=== PATIENT | male | born 1980 | race African-American/Black ===

== ENCOUNTER 2022-05-17 14:07 | Outpatient (CLI) | payer OTHER, SELFPAY ==
[2022-05-17 20:12] LABS: Basophils Absolute Auto 0.1 K/mm3 (0.0-0.1); Basophils Percent Auto 1.3 % (0.2-1.2); Eosinophils Absolute Auto 0.5 K/mm3 (0-0.3); Eosinophils Percent Auto 7.6 % (0-4.4); Hemoglobin 16.4 g/dL (14.0-18.0); Immature Granulocyte Absolute 0.09 K/mm3 (0.00-0.031); Immature Granulocyte Percent A 1.3 % (0-0.5); Mean Corpuscular HGB Conc 30.9 g/dl (32-36); Mean Corpuscular Hemoglobin 23.1 pg (26-34); Mean Corpuscular Volume 74.5 fl (80-100); Mean Platelet Volume 11.2 fl (7.4-10.4); Monocytes Absolute Auto 0.6 K/mm3 (0.1-0.6); Monocytes Percent Auto 8.9 % (2.6-8.5); Neutrophils Absolute Auto 3.4 K/mm3 (1.3-6.7); Neutrophils Percent Auto 47.9 % (45.5-73.1); Platelet Count Result 257 k/mm3 (150-375); Red Blood Count 7.11 M/mm3 (4.6-6.20); Red Cell Distribution Width 19.6 % (11.5-14.5)
[2022-05-17 20:23] LABS: Alanine Aminotransferase 67 U/L (6-50); Albumin Level 4.6 g/dL (3.5-5.1); Alkaline Phosphatase 84 U/L (38-126); Anion Gap 7 mmol/L (8-16); Aspartate Amino Transferase 45 U/L (17-59); Bilirubin,Total 0.3 mg/dL (0.2-1.3); Blood Urea Nitrogen 9 mg/dL (9-20); Calcium 8.7 mg/dL (8.4-10.2); Carbon Dioxide 25 mmol/L (22-30); Chloride 106 mmol/L (98-107); Cholesterol 164 mg/dL (0-200); Estimated Glomerular Filt Rate > 60; Glucose 105 mg/dL (65-110); HDL Direct 33 mg/dL; Sodium 138 mmol/L (137-145); Triglycerides 230 mg/dL (<150)
[2022-05-17 20:34] LABS: LDL Cholesterol Direct 82 mg/dL
== END 2022-05-17 14:08 | disposition home or self-care (01) ==
PROVIDERS: PCP Family Medicine; Visit Provider Family Medicine
DX: Z00.00 Encounter for general adult medical examination without abnormal findings (principal)
CPT/HCPCS: 36415; 80053; 80061; 85025

== ENCOUNTER 2022-06-06 11:42 | Outpatient (CLI) | payer OTHER, SELFPAY ==
[2022-06-06 19:43] LABS: Basophils Absolute Auto 0.1 K/mm3 (0.0-0.1); Eosinophils Absolute Auto 0.4 K/mm3 (0-0.3); Eosinophils Percent Auto 6.1 % (0-4.4); Hematocrit 55.4 % (42.0-52.0); Hemoglobin 16.3 g/dL (14.0-18.0); Immature Granulocyte Absolute 0.06 K/mm3 (0.00-0.031); Immature Granulocyte Percent A 0.8 % (0-0.5); Lymphocytes Absolute Auto 3.06 K/mm3 (0.9-3.2); Lymphocytes Percent Auto 42.1 % (18.3-44.2); Mean Corpuscular HGB Conc 29.4 g/dl (32-36); Mean Corpuscular Hemoglobin 22.2 pg (26-34); Mean Corpuscular Volume 75.6 fl (80-100); Mean Platelet Volume 11.3 fl (7.4-10.4); Monocytes Absolute Auto 0.6 K/mm3 (0.1-0.6); Monocytes Percent Auto 8.1 % (2.6-8.5); Neutrophils Absolute Auto 3.1 K/mm3 (1.3-6.7); Neutrophils Percent Auto 41.9 % (45.5-73.1); Platelet Count Result 278 k/mm3 (150-375); Red Blood Count 7.33 M/mm3 (4.6-6.20); Red Cell Distribution Width 18.9 % (11.5-14.5); White Blood Count 7.3 K/mm3 (4.5-10.0)
[2022-06-06 19:51] LABS: Alanine Aminotransferase 109 U/L (6-50); Albumin Level 4.4 g/dL (3.5-5.1); Alkaline Phosphatase 83 U/L (38-126); Aspartate Amino Transferase 83 U/L (17-59); Bilirubin,Total 0.5 mg/dL (0.2-1.3)
[2022-06-06 20:22] LABS: Microcytosis 1+ (NORMAL); Platelet Estimate Adequate (Adequate)
[2022-06-06 21:48] LABS: Hepatitis B Surface Antigen Negative (Negative)
[2022-06-06 21:53] LABS: HAV RESULT Negative (Negative); Hepatitis B Core IgM Result Negative (Negative)
[2022-06-06 22:05] LABS: Hepatitis C Virus Antibody Negative (Negative)
== END 2022-06-06 11:43 | disposition home or self-care (01) ==
PROVIDERS: PCP Family Medicine; Visit Provider Family Medicine
DX: R74.8 Abnormal levels of other serum enzymes (principal); D75.1 Secondary polycythemia
CPT/HCPCS: 36415; 80074; 80076; 85025

== ENCOUNTER 2022-12-06 11:55 | Outpatient (CLI) | payer OTHER, SELFPAY ==
[2022-12-06 19:29] LABS: Hematocrit 55.9 % (42.0-52.0); Hemoglobin 16.9 g/dL (14.0-18.0); Mean Corpuscular HGB Conc 30.2 g/dl (32-36); Mean Corpuscular Hemoglobin 22.8 pg (26-34); Mean Corpuscular Volume 75.5 fl (80-100); Mean Platelet Volume 11.1 fl (7.4-10.4); Platelet Count Result 289 k/mm3 (150-375); Red Cell Distribution Width 18.6 % (11.5-14.5); White Blood Count 8.1 K/mm3 (4.5-10.0)
[2022-12-06 20:26] LABS: Alanine Aminotransferase 72 U/L (6-50); Albumin Level 4.2 g/dL (3.5-5.1); Alkaline Phosphatase 83 U/L (38-126); Anion Gap 7 mmol/L (8-16); Aspartate Amino Transferase 52 U/L (17-59); Bilirubin,Total 0.4 mg/dL (0.2-1.3); Blood Urea Nitrogen 10 mg/dL (9-20); Carbon Dioxide 25 mmol/L (22-30); Chloride 107 mmol/L (98-107); Estimated Glomerular Filt Rate > 60; Glucose 108 mg/dL (65-110); Sodium 139 mmol/L (137-145)
== END 2022-12-06 11:56 | disposition home or self-care (01) ==
LOC: ANHBWCLAB 11:56
PROVIDERS: PCP Family Medicine; Visit Provider Family Medicine
DX: I50.9 Heart failure, unspecified (principal); R74.8 Abnormal levels of other serum enzymes; D75.1 Secondary polycythemia
CPT/HCPCS: 36415; 80053; 85027

== ENCOUNTER 2023-09-05 11:17 | Outpatient (CLI) | payer OTHER, SELFPAY ==
[2023-09-05 19:45] LABS: Alanine Aminotransferase 79 U/L (6-50); Albumin Level 4.4 g/dL (3.5-5.1); Alkaline Phosphatase 79 U/L (38-126); Anion Gap 9 mmol/L (8-16); Aspartate Amino Transferase 93 U/L (17-59); Bilirubin,Total 0.6 mg/dL (0.2-1.3); Blood Urea Nitrogen 10 mg/dL (9-20); Calcium 9.5 mg/dL (8.4-10.2); Carbon Dioxide 23 mmol/L (22-30); Chloride 106 mmol/L (98-107); Cholesterol 155 mg/dL (0-200); Estimated Glomerular Filt Rate > 60; Glucose 165 mg/dL (65-110); HDL Direct 33 mg/dL; Potassium 3.4 mmol/L (3.4-5.0); Sodium 138 mmol/L (137-145); Triglycerides 317 mg/dL (<150)
[2023-09-05 19:56] LABS: LDL Cholesterol Direct 89 mg/dL
== END 2023-09-05 11:18 | disposition home or self-care (01) ==
LOC: ANHBWCLAB 11:19
PROVIDERS: PCP Nurse Practitioner Adult Health; Visit Provider Nurse Practitioner Adult Health
DX: I10 Essential (primary) hypertension (principal)
CPT/HCPCS: 36415; 80053; 80061

== ENCOUNTER 2024-03-05 10:42 | Outpatient (CLI) | payer OTHER, SELFPAY ==
[2024-03-05 19:22] LABS: Basophils Absolute Auto 0.1 K/mm3 (0.0-0.1); Basophils Percent Auto 1.2 % (0.2-1.2); Eosinophils Absolute Auto 0.5 K/mm3 (0-0.3); Eosinophils Percent Auto 7.4 % (0-4.4); Immature Granulocyte Absolute 0.06 K/mm3 (0.00-0.031); Immature Granulocyte Percent A 0.9 % (0-0.5); Lymphocytes Absolute Auto 2.15 K/mm3 (0.9-3.2); Lymphocytes Percent Auto 33.1 % (18.3-44.2); Mean Corpuscular HGB Conc 29.4 g/dl (32-36); Mean Corpuscular Hemoglobin 22.7 pg (26-34); Mean Corpuscular Volume 77.3 fl (80-100); Mean Platelet Volume 10.8 fl (7.4-10.4); Monocytes Absolute Auto 0.5 K/mm3 (0.1-0.6); Monocytes Percent Auto 7.5 % (2.6-8.5); Neutrophils Absolute Auto 3.2 K/mm3 (1.3-6.7); Neutrophils Percent Auto 49.9 % (45.5-73.1); Platelet Count Result 281 k/mm3 (150-375); Red Cell Distribution Width 16.1 % (11.5-14.5); White Blood Count 6.5 K/mm3 (4.5-10.0)
[2024-03-05 20:02] LABS: Anisocytosis 1+; Large Platelets Present; Platelet Estimate Adequate (Adequate); Schistocytes None Seen
[2024-03-05 22:05] LABS: Thyroid Stimulating Hormone Reflex 0.701 uIU/mL (0.465-4.68)
[2024-03-05 22:46] LABS: Alanine Aminotransferase 92 U/L (6-50); Albumin Level 4.7 g/dL (3.5-5.1); Alkaline Phosphatase 71 U/L (38-126); Anion Gap 7 mmol/L (4-12); Aspartate Amino Transferase 103 U/L (17-59); Bilirubin,Total 0.5 mg/dL (0.2-1.3); Blood Urea Nitrogen 15 mg/dL (9-20); Calcium 10.1 mg/dL (8.4-10.2); Carbon Dioxide 25 mmol/L (22-30); Chloride 107 mmol/L (98-107); Cholesterol 146 mg/dL (0-200); Glucose 127 mg/dL (65-110); HDL Direct 33 mg/dL; Magnesium 2.2 mg/dL (1.6-2.3); Potassium 4.1 mmol/L (3.4-5.0); Sodium 139 mmol/L (137-145); Triglycerides 163 mg/dL (<150)
[2024-03-05 22:52] LABS: LDL Cholesterol Direct 85 mg/dL
[2024-03-05 23:18] LABS: Estimated Glomerular Filt Rate 57
== END 2024-03-05 10:43 | disposition home or self-care (01) ==
PROVIDERS: PCP Nurse Practitioner Adult Health; Visit Provider Nurse Practitioner Adult Health
DX: I10 Essential (primary) hypertension (principal)
CPT/HCPCS: 36415; 80053; 80061; 83735; 84443; 85025

== ENCOUNTER 2024-06-02 15:37 | Outpatient (CLI) | payer OTHER, SELFPAY ==
[2024-06-02 19:05] LABS: Albumin Level 4.5 g/dL (3.5-5.1); Anion Gap 10 mmol/L (4-12); Blood Urea Nitrogen 6 mg/dL (9-20); Carbon Dioxide 25 mmol/L (22-30); Chloride 102 mmol/L (98-107); Estimated Glomerular Filt Rate > 60; Glucose 153 mg/dL (65-110); Phosphorus 2.7 mg/dL (2.5-4.5); Potassium 3.7 mmol/L (3.4-5.0); Sodium 137 mmol/L (137-145)
[2024-06-02 19:12] LABS: Creatinine Urine 257.2 mg/dL; Total Protein Urine Random 13 mg/dL; Ur Ttl Prot Creatinine Ratio 0.05 mg/mg (0-0.20)
[2024-06-02 19:13] LABS: Complement C3 141 mg/dL (88-165)
[2024-06-03 14:54] LABS: Creatinine, Random Urine 237 mg/dL (20-320); Total Protein/Creatinine Ratio 131 mg/g creat (25-148)
[2024-06-03 17:02] LABS: Protein, Total 7.1 g/dL (6.1-8.1)
[2024-06-04 12:29] LABS: Albumin 4.5 g/dL (3.8-4.8); Alpha 1 Globulin 0.2 g/dL (0.2-0.3); Alpha 2 Globulin 0.6 g/dL (0.5-0.9); Beta 1 Globulin 0.4 g/dL (0.4-0.6)
[2024-06-04 16:49] LABS: Anti Glomerular Basement Memb <1.0 AI
[2024-06-05 09:09] LABS: Anti Nuclear Antibody Pattern Nuclear, Homogeneous
[2024-06-05 15:33] LABS: ANCA Screen NEGATIVE (NEGATIVE)
== END 2024-06-02 15:38 | disposition home or self-care (01) ==
LOC: ANHBWCLAB 15:39
PROVIDERS: PCP Family Medicine; Visit Provider Internal Medicine Nephrology
DX: I50.9 Heart failure, unspecified (principal); I12.9 Hypertensive chronic kidney disease with stage 1 through stage 4 chronic kidney disease, or unspecified chronic kidney disease; N18.31 Chronic kidney disease, stage 3a
CPT/HCPCS: 36415; 80069; 82570; 83520; 84155; 84156; 84165; 84166; 86036; 86038; 86039; 86160; 86225

== ENCOUNTER 2024-06-15 17:06 | Outpatient (CLI) | payer OTHER, SELFPAY ==
--- NOTE | ~2024-06-15 | US_ITS ---
EXAMINATION: US renal BI DATE: 06/15/2024 18:30 INDICATION: N18.31 - Chronic kidney disease, stage 3a TECHNIQUE: Multiple grayscale and Doppler ultrasound images of the kidneys were obtained. COMPARISON: None. FINDINGS: The right kidney measures 13.4 x 6.2 x 6.3 cm. The left kidney measures 13.2 x 6.7 x 5.4 cm. The kidn eys demonstrate normal parenchymal echogenicity. There is no hydronephrosis. The bladder is normal. I ncidental note of increased liver echogenicity. IMPRESSION: Unremarkable renal sonogram findings. Echogenic liver, most commonly due to steatosis but also can be seen with hepatitis and fibrosis Reviewed, dictated and finalized at location K. IMPRESSION: Unremarkable renal sonogram findings. Echogenic liver, most commonly due to steatosis but also can be seen with hepat itis and fibrosis
== END 2024-06-15 17:07 | disposition home or self-care (01) ==
LOC: ANHIMG 17:06
PROVIDERS: PCP Family Medicine; Visit Provider Internal Medicine Nephrology
DX: I12.9 Hypertensive chronic kidney disease with stage 1 through stage 4 chronic kidney disease, or unspecified chronic kidney disease (principal); N18.31 Chronic kidney disease, stage 3a; I50.9 Heart failure, unspecified
CPT/HCPCS: 76775

== ENCOUNTER 2024-12-18 12:40 | Outpatient (CLI) | payer OTHER, SELFPAY ==
--- OUTSIDE RECORDS SUMMARY | 2024-12-18 12:49 | XMS_ITS | Encounter Summary ---
Author Organization [facility] Health Address [address] [place] [address] Care Team Providers Care Legal Records Clerk Name Role Phone Milo Thayer MD Primary Care Provider [phone] Reason for Visit * Reason Onset Date Comments MEDICATION REFILL 01/28/2024 Encounter Details Date Type Department Care Team (Late Contact Info) Description 01/28/2024 Refill [facility] - Cardiology [address] [facility], [address] [id number] Savita Tam PA [address] [place] [address] MEDICATION REFILL Social History Tobacco Use Types Packs/Day Years Used Date Smoking Tobacco: Every Day Cigarettes Smokeless Tobacco: Never Sex and Gender Information Value Date Recorded Sex Assigned at Not on file Gender Identity Not on file Sexual Orientation Not on file documented as of this encounter Plan of Treatment Upcoming Encounters Date Type Department Care Team (Late st Contact Info) Description 12/30/2024 10:00 AM [employer] Office Visit [facility] - Cardiology [address] [facility], [id number] [place] [phone] Ashley Zavala APRN-CNP [address] [address] documented as of this encounter Visit Diagnoses Not on filedocumented in this encounter Care Teams Legal Records Clerk Relationship Specialty Start Date End Date Milo Thayer MD [address] [place] [phone] PCP - General 09/17/22 documented as of this encounter
--- OUTSIDE RECORDS SUMMARY | 2024-12-18 12:49 | XMS_ITS | Referral Summary ---
Author Organization [facility] Medical Office Building A Address [address] [place] [address] Care Team Providers Care Computer Tester Name Role Phone Milo Thayer MD Primary Care Provider [phone] Encounters Date Type Department Care Team Description 10/22/2024 4:43 AM SPA ASSISTANT MANAGER - 10/22/2024 8:42 AM [facility] Emergency [facility] Emergency Department [address] [place] [address] Amy Long MD Holland, Kristy Lynn, MD Hypertension, unspecified type (Primary Dx) Discharge Disposition: Discharge to home or self care 10/21/2024 11:06 AM SPA ASSISTANT MANAGER - 10/21/2024 5:34 PM [facility] Emergency [facility] Emergency Department [address] [place] [id number] Discharge Disposition: Left without being seen from Last 3 Months Allergies No known active allergies Medications albuterol HFA (PROVENTIL HFA,VENTOLIN HFA,PROAIR HFA) 90 mcg/actuation inhaler Inhale 2 puffs every 4 (four) hours as needed for wheezing 1 each 12/16/2021 Active isosorbide dinitrate (ISORDIL) 30 mg tablet Take 1 tablet (30 mg total) by mouth 3 (three) times a day Active hydrALAZINE (APRESOLINE) 100 mg tablet 1 tablet (100 mg total) 04/25/2023 Active metoprolol XL (TOPROL-XL) 200 mg extended release tablet Take 1 tablet (200 mg total) by mouth daily for 14 days 14 tablet 05/04/2023 Active sacubitriL-vals josiah (ENTRESTO) 49-51 mg tabletIndicatio ns:chronic heart failure Take 1 tablet by mouth 2 (two) times a day for 14 days 28 tablet 05/04/2023 Active spironolactone (ALDACTONE) 25 mg tablet Take 1 tablet (25 mg total) by mouth daily for 14 days 14 tablet 05/04/2023 Active Active Problems Problem Noted Date Diagnosed Date Syncope and collapse 12/15/2021 Chronic systolic (congestive) heart failure 02/2022 Uncontrolled hypertension 12/15/2021 Social History Tobacco Use Types Packs/Day Years Used Date Smoking Tobacco: Every Day Cigarettes 0.8 24 Smokeless Tobacco: Current Tobacco Cessation:Ready to Q uit: No; Counseling Given: No AUDIT-C Answer Date Recorded Q1: How often do you have a drink containing alc ohol? 2-3 times a week 12/15/2021 Q2: How many drinks containi ng alcohol do you have on a typical day when you are drinking? 10 or more 12/15/2021 Q3: How often do you have si x or more drinks on one occasion? Weekly 12/15/2021 Personal Safety Answer Date Recorded Have you ever been in or are you currently in a harmful physical or emotional relationship or is someone making you feel afraid or unsafe? Denies 10/22/2024 Sex and Gender Information Value Date Recorded Sex Assigned at Not on file Legal Sex Male 3:29 AM SPA ASSISTANT MANAGER Gender Identity Not on file Sexual Orientation Not on file Last Filed Vital Signs Vital Sign Reading Time Taken Comments Blood Pressure 127/94 10/22/2024 8:30 AM SPA ASSISTANT MANAGER Pulse 90 10/22/2024 8:30 AM SPA ASSISTANT MANAGER Temperature 36.5 C (97.7 F) 10/22/2024 4:04 AM SPA ASSISTANT MANAGER Respiratory Rate 18 10/22/2024 8:30 AM SPA ASSISTANT MANAGER Oxygen Saturation 96% 10/22/2024 8:30 AM SPA ASSISTANT MANAGER Inhaled Oxygen Concentration - - Weight 103.9 kg (229 lb) 10/22/2024 4:04 AM SPA ASSISTANT MANAGER Height 180.3 cm (5' 11 ) 10/22/2024 4:04 AM SPA ASSISTANT MANAGER Body Mass Index 31.94 10/22/2024 4:04 AM SPA ASSISTANT MANAGER Plan of Treatment Not on file Medical Devices Implanted Type Area Assistant [employer] Device Identifier Shelf Expiration Date Model / Serial / Lot Screw Screw Right: Ankle Procedures Procedure Name Priority Date/Time Associated Diagnosis Comments EGFR STAT 10/22/2024 5:36 AM SPA ASSISTANT MANAGER DIFFERENTIAL AUTO Routine 10/22/2024 5:3 6 AM SPA ASSISTANT MANAGER TROPONIN T HIGH-SENSITIVITY SERIES (BASELINE, 2HR, 4HR, 6HR) STAT 10/22/2024 5:36 AM SPA ASSISTANT MANAGER BASIC METABOLIC PANEL STAT 10/22/2024 5:36 AM SPA ASSISTANT MANAGER CBC WITH AUTO DIFFERENTIAL Routine 10/22/2024 5:36 AM SPA ASSISTANT MANAGER ECG 12-LEAD STAT 10/22/2024 4:09 AM SPA ASSISTANT MANAGER EGFR STAT 10/21/2024 11:38 AM SPA ASSISTANT MANAGER DIFFERENTIAL AUTO STAT 10/21/2024 11: 38 AM SPA ASSISTANT MANAGER CBC WITH AUTO DIFFERENTIAL STAT 10/21/2024 11:38 AM SPA ASSISTANT MANAGER COMPREHENSIVE METABOLIC PANEL STAT 10/21/2024 11:38 AM SPA ASSISTANT MANAGER from Last 3 Months Results * Troponin T high-sensitivity series (baseline, 2hr, 4hr, 6hr) (10/22/2024 5:36 AM SPA ASSISTANT MANAGER) Trop T hs 9 <=22 ng/L Comment: Interpretive Data For further hscTnT resources including the diagnostic algorithm and an aid in interpretation, copy and paste this link: https://nrl.testcatalog.org/show/hsTrop Current Interpretive Data last revised 2020. Blood 10/22/2024 5:36 AM SPA ASSISTANT MANAGER 10/22/2024 5:38 AM SPA ASSISTANT MANAGER us Amy Long MD LAB BLOOD ORDERABLES Final Resul t [facility] ([place]) 1 [facility] Department [place] [address] * eGFR (10/22/2024 5:36 AM SPA ASSISTANT MANAGER) Pathologist [facility] eGFR >90 >=60 mL/min/1. 73 m2 Comment: Interpretive Data Reference Interval Normal >/= 90 mL/min/1.73m2 Mildly decreased* 60 - 89 mL/min/1.73m2 Mildly to moderately decreased 45 - 59 mL/min/1.73m2 Moderately to severely decreased 30 - 44 mL/min/1.73m2 Severely decreased 15 - 29 mL/min/1.73m2 Kidney Failure < 15 mL/min/1.73m2 *Relative to young adult level Estimated glomerular filtration rate is determined by the 2020 CKD-EPI equation recommended by the National Kidney Foundation (A Unifying Approach to GFR Estimation: Recommendations of the NKF-ASK Task Force on Reassessing the Inclusion of Race in Diagnosing Kidney Disease, JASN 2020). The CKD-EPI equation should not be used for patients with unstable renal function and has not been validated in children and those over 70. Current interpretive data was last reviewed 2021. Blood 10/22/2024 5:36 AM SPA ASSISTANT MANAGER 10/22/2024 5:38 AM SPA ASSISTANT MANAGER us Amy Long MD LAB BLOOD ORDERABLES Final Resul t [facility] ([place]) 1 [facility] Department [place] [address] * (ABNORMAL) Differential, auto (10/22/2024 5:36 AM SPA ASSISTANT MANAGER) Neutrophil abs 4.0 1.5 - 6.5 K/cumm Imm gran abs 0.1 0.0 - 0.1 K/cumm [facility] ([place]) Lymphocyte abs 2.5 0.8 - 3.3 K/cumm [facility] ([place]) Monocyte abs 0.6 0.2 - 0.8 K/cumm [facility] ([place]) Eosinophil abs 0.6(H) 0.0 - 0.5 K/cumm [facility] ([place]) Basophil abs 0.1 0.0 - 0.1 K/cumm [facility] ([place]) Neutrophil pct 51.0 % [facility] ([place]) Comment: Interpretive Data Percent cell count reference ranges are not reported, since discordance with absolute values may lead to misinterpretation of CBC data. Current Interpretive Data was last revised on 2018. Imm gran pct 0.9 % [facility] ([place]) Comment: Interpretive Data Percent cell count reference ranges are not reported, since discordance with absolute values may lead to misinterpretation of CBC data. Current Interpretive Data was last revised on 2018. Lymphocyte pct 32.0 % [facility] ([place]) Comment: Interpretive Data Percent cell count reference ranges are not reported, since discordance with absolute values may lead to misinterpretation of CBC data. Current Interpretive Data was last revised on 2018. Monocyte pct 7.6 % [facility] ([place]) Comment: Interpretive Data Percent cell count reference ranges are not reported, since discordance with absolute values may lead to misinterpretation of CBC data. Current Interpretive Data was last revised on 2018. Eosinophil pct 7.5 % [facility] ([place]) Comment: Interpretive Data Percent cell count reference ranges are not reported, since discordance with absolute values may lead to misinterpretation of CBC data. Current Interpretive Data was last revised on 2018. Basophil pct 1.0 % [facility] ([place]) Comment: Interpretive Data Percent cell count reference ranges are not reported, since discordance with absolute values may lead to misinterpretation of CBC data. Current Interpretive Data was last revised on 2018. Blood 10/22/2024 5:36 AM SPA ASSISTANT MANAGER 10/22/2024 5:38 AM SPA ASSISTANT MANAGER us Amy Long MD LAB BLOOD ORDERABLES Final Resul t [facility] ([place]) 1 [facility] Department [place] [address] * (ABNORMAL) CBC with auto differential (10/22/2024 5:36 AM SPA ASSISTANT MANAGER) WBC 7.9 3.8 - 9.9 K/cumm Hgb 17.2 13.0 - 17.5 g/dL [facility] ([place]) Hct 54.7(H) 38.9 - 50.3 % [facility] ([place]) Plt 274 150 - 400 K/cumm [facility] ([place]) MPV 10.0 9.1 - 12.3 fL [facility] ([place]) RBC 7.70(H) 4.30 - 5.80 M/cumm [facility] ([place]) MCV 71.0(L) 81.3 - 96.4 fL [facility] ([place]) MCH 22.3(L) 27.1 - 33.3 pg [facility] ([place]) MCHC 31.4(L) 32.3 - 35.7 g/dL [facility] ([place]) RDW CV 18.8(H) 11.1 - 14.9 % [facility] ([place]) RDW SD 41.8 35.7 - 48.1 fL [facility] ([place]) NRBC abs 0.00 0.00 - 0.01 K/cumm [facility] ([place]) Blood 10/22/2024 5:36 AM SPA ASSISTANT MANAGER 10/22/2024 5:38 AM SPA ASSISTANT MANAGER us Amy Long MD LAB BLOOD ORDERABLES Final Resul t [facility] ([place]) 1 [facility] Department [place] [address] * Basic metabolic panel (10/22/2024 5:36 AM SPA ASSISTANT MANAGER) Sodium 137 135 - 145 mmol/L Potassium, pl 3.3 3.3 - 4.9 mmol/L [facility] ([place]) Chloride 102 97 - 110 mmol/L [facility] ([place]) CO2 25 22 - 32 mmol/L [facility] ([place]) Anion gap 11 2 - 15 mmol/L [facility] ([place]) BUN 9 6 - 25 mg/dL [facility] ([place]) Creatinine 0.85 0.80 - 1.30 mg/dL [facility] ([place]) Glucose 182 70 - 199 mg/dL [facility] ([place]) Comment: Interpretive Data Fasting glucose >/= 126 mg/dl is diagnostic for diabetes. Fasting is defined as no caloric intake for at least 8 hours. Fasting glucose between 100 mg/dl to 125 mg/dl is diagnostic of prediabetes. In a patient with classic symptoms of hyperglycemia or hyperglycemic crisis, a random glucose >/= 200 mg/dl is diagnostic for diabetes. In the absence of unequivocal hyperglycemia, results should be confirmed by repeat testing. The classification and Diagnosis of Diabetes Diabetes Care 2021; 46: S19-S40. Current interpretive data was last revised 2022. Calcium 9.5 8.5 - 10.3 mg/dL [facility] ([place]) Blood 10/22/2024 5:36 AM SPA ASSISTANT MANAGER 10/22/2024 5:38 AM SPA ASSISTANT MANAGER us Amy Long MD LAB BLOOD ORDERABLES Final Resul t Performing Organization Address [facility] Co de Phone Number [facility] ([place]) 1 [facility] [place] [address] * ECG 12 lead (10/22/2024 4:09 AM SPA ASSISTANT MANAGER) 10/22/2024 4:09 AM SPA ASSISTANT MANAGER Narrative [facility] - 10/22/2024 8:39 AM SPA ASSISTANT MANAGER Vent Rate: 106 bpm RR Interval: [address] Interval: 172 msec QRS Duration: 117 msec QT Interval: 356 msec QTC Interval: 418 msec P-R-T [place]: 55 - 17 - 36 degrees IMPRESSION: SINUS TACHYCARDIA POSSIBLE LEFT ATRIAL ENLARGEMENT [-0.1mV P WAVE IN V1/V2] LVH Somewhat peaked T-waves may be due to electrolyte abnormality Compared to prior EKG, heart rate is now slightly faster and axis has shifted rightward Electronically Signed By: Dr Jamel Moise us Amy Long MD ECG ORDERABLES Final Result Performing Organization Address [facility] Co de Phone Number [facility] * eGFR (10/21/2024 11:38 AM SPA ASSISTANT MANAGER) eGFR >90 >=60 mL/min/1. 73 m2 Comment: Interpretive Data Reference Interval Normal >/= 90 mL/min/1.73m2 Mildly decreased* 60 - 89 mL/min/1.73m2 Mildly to moderately decreased 45 - 59 mL/min/1.73m2 Moderately to severely decreased 30 - 44 mL/min/1.73m2 Severely decreased 15 - 29 mL/min/1.73m2 Kidney Failure < 15 mL/min/1.73m2 *Relative to young adult level Estimated glomerular filtration rate is determined by the 2020 CKD-EPI equation recommended by the National Kidney Foundation (A Unifying Approach to GFR Estimation: Recommendations of the NKF-ASK Task Force on Reassessing the Inclusion of Race in Diagnosing Kidney Disease, JASN 2020). The CKD-EPI equation should not be used for patients with unstable renal function and has not been validated in children and those over 70. Current interpretive data was last reviewed 2021. Blood 10/21/2024 11:3 8 AM SPA ASSISTANT MANAGER 10/21/2024 11:54 AM SPA ASSISTANT MANAGER us Channing Morris MD LAB BLOOD ORDERABLES Final R esult [facility] ([place]) 1 [facility] Department [place] [address] * (ABNORMAL) Differential, auto (10/21/2024 11:38 AM SPA ASSISTANT MANAGER) Neutrophil abs 3.7 1.5 - 6.5 K/cumm Imm gran abs 0.1 0.0 - 0.1 K/cumm [facility] ([place]) Lymphocyte abs 2.6 0.8 - 3.3 K/cumm [facility] ([place]) Monocyte abs 0.7 0.2 - 0.8 K/cumm [facility] ([place]) Eosinophil abs 0.6(H) 0.0 - 0.5 K/cumm [facility] ([place]) Basophil abs 0.1 0.0 - 0.1 K/cumm [facility] ([place]) Neutrophil pct 48.0 % [facility] ([place]) Comment: Interpretive Data Percent cell count reference ranges are not reported, since discordance with absolute values may lead to misinterpretation of CBC data. Current Interpretive Data was last revised on 2018. Imm gran pct 1.0 % [facility] ([place]) Comment: Interpretive Data Percent cell count reference ranges are not reported, since discordance with absolute values may lead to misinterpretation of CBC data. Current Interpretive Data was last revised on 2018. Lymphocyte pct 33.1 % [facility] ([place]) Comment: Interpretive Data Percent cell count reference ranges are not reported, since discordance with absolute values may lead to misinterpretation of CBC data. Current Interpretive Data was last revised on 2018. Monocyte pct 9.2 % [facility] ([place]) Comment: Interpretive Data Percent cell count reference ranges are not reported, since discordance with absolute values may lead to misinterpretation of CBC data. Current Interpretive Data was last revised on 2018. Eosinophil pct 7.3 % [facility] ([place]) Comment: Interpretive Data Percent cell count reference ranges are not reported, since discordance with absolute values may lead to misinterpretation of CBC data. Current Interpretive Data was last revised on 2018. Basophil pct 1.4 % [facility] ([place]) Comment: Interpretive Data Percent cell count reference ranges are not reported, since discordance with absolute values may lead to misinterpretation of CBC data. Current Interpretive Data was last revised on 2018. Blood 10/21/2024 11:3 8 AM SPA ASSISTANT MANAGER 10/21/2024 11:54 AM SPA ASSISTANT MANAGER Channing Morris MD LAB BLOOD ORDERABLES Final R esult [facility] ([place]) 1 [facility] Department [place] [address] * (ABNORMAL) CBC with auto differential (10/21/2024 11:38 AM SPA ASSISTANT MANAGER) WBC 7.7 3.8 - 9.9 K/cumm Hgb 16.4 13.0 - 17.5 g/dL [facility] ([place]) Hct 53.1(H) 38.9 - 50.3 % [facility] ([place]) Plt 286 150 - 400 K/cumm [facility] ([place]) MPV 10.9 9.1 - 12.3 fL [facility] ([place]) RBC 7.39(H) 4.30 - 5.80 M/cumm [facility] ([place]) MCV 71.9(L) 81.3 - 96.4 fL [facility] ([place]) MCH 22.2(L) 27.1 - 33.3 pg [facility] ([place]) MCHC 30.9(L) 32.3 - 35.7 g/dL [facility] ([place]) RDW CV 18.8(H) 11.1 - 14.9 % [facility] ([place]) RDW SD 42.8 35.7 - 48.1 fL [facility] ([place]) NRBC abs 0.00 0.00 - 0.01 K/cumm [facility] ([place]) Blood 10/21/2024 11:3 8 AM SPA ASSISTANT MANAGER 10/21/2024 11:54 AM SPA ASSISTANT MANAGER us Channing Morris MD LAB BLOOD ORDERABLES Final R esult [facility] ([place]) 1 [facility] Department [place] [address] * (ABNORMAL) Comprehensive metabolic panel (10/21/2024 11:38 AM SPA ASSISTANT MANAGER) Sodium 134(L) 135 - 145 mmol/L Potassium, pl 3.4 3.3 - 4.9 mmol/L [facility] ([place]) Chloride 101 97 - 110 mmol/L [facility] ([place]) CO2 24 22 - 32 mmol/L [facility] ([place]) Anion gap 10 2 - 15 mmol/L [facility] ([place]) BUN 10 6 - 25 mg/dL [facility] ([place]) Creatinine 0.96 0.80 - 1.30 mg/dL [facility] ([place]) Glucose 176 70 - 199 mg/dL [facility] ([place]) Comment: Interpretive Data Fasting glucose >/= 126 mg/dl is diagnostic for diabetes. Fasting is defined as no caloric intake for at least 8 hours. Fasting glucose between 100 mg/dl to 125 mg/dl is diagnostic of prediabetes. In a patient with classic symptoms of hyperglycemia or hyperglycemic crisis, a random glucose >/= 200 mg/dl is diagnostic for diabetes. In the absence of unequivocal hyperglycemia, results should be confirmed by repeat testing. The classification and Diagnosis of Diabetes Diabetes Care 2021; 46: S19-S40. Current interpretive data was last revised 2022. Calcium 9.4 8.5 - 10.3 mg/dL [facility] ([place]) Bilirubin, total 0.3 0.1 - 1.2 mg/dL [facility] ([place]) Protein, pl 7.3 6.5 - 8.5 g/dL [facility] ([place]) Albumin 4.6 3.5 - 5.0 g/dL [facility] ([place]) Alk phos 107 40 - 130 Units/L [facility] ([place]) ALT 57(H) 7 - 55 Units/L [facility] ([place]) AST 35 10 - 50 Units/L [facility] ([place]) Comment:Slightly Hemolyzed S pecimen Blood 10/21/2024 11:3 8 AM SPA ASSISTANT MANAGER 10/21/2024 11:54 AM SPA ASSISTANT MANAGER Channing Morris MD LAB BLOOD ORDERABLES Final R esult [facility] ([place]) 1 [facility] Department [place] [address] from Last 3 Months Insurance [facility] Advance Directives For more information, please contact: [phone] * Full Code (Latest Code Status on File) Date Activated Date Inactivated Comments 12/15/2021 11:54 AM 12/16/2021 7:16 PM Care Teams Computer Tester Relationship Specialty Start Date End Date Milo Thayer MD PCP - General Family Practice 05/01/23
--- OUTSIDE RECORDS SUMMARY | 2024-12-18 12:49 | XMS_ITS | Clinical Summary ---
Author Organization [facility] Building A Address [address] [place] [address] Care Team Providers Care Bus Person Dishwasher Name Role Phone Milo Thayer MD Primary Care Provider [phone] Allergies No known active allergies Medications albuterol [...] (congestive) heart failure 02/2022 Uncontrolled hypertension 12/15/2021 Encounters Date Type Department Care Team Description 10/22/2024 4:43 AM REVIEW MANAGER - 10/22/2024 8:42 AM REVIEW MANAGER Emergency [facility] Emergency Department [address] [place] [address] Amy Long MD Holland, Kristy Lynn, MD Hypertension, unspecified type (Primary Dx) Discharge Disposition: Discharge to home or self care 10/21/2024 11:06 AM REVIEW MANAGER - 10/21/2024 5:34 PM REVIEW MANAGER Emergency [facility] Emergency Department [address] [place] [address] Discharge Disposition: Left without being seen from Last 3 Months Surgical History Surgery Date Site/Laterality Comments NOSE SURGERY ANKLE FRACTURE SURGERY Left WRIST SURGERY Medical History Medical History Date Comments Hx Other Medical ORIF Left ankle on 09-25-14; Comments: NENITA 10/19/2014 - Hypertension CHF (congestive heart failur e) (CMS/HCC) (HCC) Coronary artery disease Family History Medical History Relation Name Comments Hypertension Mother Other Mother at age 52 from unknown type of cancer.; Relation Name Status Comments Mother Social History Tobacco Use Types Packs/Day Years [...] on file Legal Sex Male 3:29 AM REVIEW MANAGER Gender Identity Not on file Sexual Orientation Not on file Obstetrics History Last Filed Vital Signs Vital Sign Reading Time Taken Comments Blood Pressure 127/94 10/22/2024 8:30 AM REVIEW MANAGER Pulse 90 10/22/2024 8:30 AM REVIEW MANAGER Temperature 36.5 C (97.7 F) 10/22/2024 4:04 AM REVIEW MANAGER Respiratory Rate 18 10/22/2024 8:30 AM REVIEW MANAGER Oxygen Saturation 96% 10/22/2024 8:30 AM REVIEW MANAGER Inhaled Oxygen Concentration - - Weight 103.9 kg (229 lb) 10/22/2024 4:04 AM REVIEW MANAGER Height 180.3 cm (5' 11 ) 10/22/2024 4:04 AM REVIEW MANAGER Body Mass Index 31.94 10/22/2024 4:04 AM REVIEW MANAGER Plan of Treatment Health Maintenance Due Date Last Done Comments Colon Cancer Screening-Colonoscopy 1979 Depression Screening 1979 Hepatitis C Screening 1979 Prostate Cancer Screening-PSA 1979 Pneumococcal vaccine <65 (1 of 2 - PCV) 1985 DTaP/Tdap/Td Vaccine (1 - Tdap) 1990 Hepatitis B Screening 1997 Regular Well Visit/Exam 18-64 1997 Influenza Vaccine (#1) 2024 HPV Vaccines Aged Out No longer eligi ble based on patient's age to complete this topic Medical Devices Implanted Type Area Wildlife Control Operator Device Identifier Shelf Expiration Date Model / Serial / Lot Screw Screw Right: Ankle Procedures Procedure Name Priority Date/Time Associated Diagnosis Comments EGFR STAT 10/22/2024 5:36 AM REVIEW MANAGER DIFFERENTIAL AUTO Routine 10/22/2024 5:3 6 AM REVIEW MANAGER TROPONIN T HIGH-SENSITIVITY SERIES (BASELINE, 2HR, 4HR, 6HR) STAT 10/22/2024 5:36 AM REVIEW MANAGER BASIC METABOLIC PANEL STAT 10/22/2024 5:36 AM REVIEW MANAGER CBC WITH AUTO DIFFERENTIAL Routine 10/22/2024 5:36 AM REVIEW MANAGER ECG 12-LEAD STAT 10/22/2024 4:09 AM REVIEW MANAGER EGFR STAT 10/21/2024 11:38 AM REVIEW MANAGER DIFFERENTIAL AUTO STAT 10/21/2024 11: 38 AM REVIEW MANAGER CBC WITH AUTO DIFFERENTIAL STAT 10/21/2024 11:38 AM REVIEW MANAGER COMPREHENSIVE METABOLIC PANEL STAT 10/21/2024 11:38 AM REVIEW MANAGER from Last 3 Months Results * Troponin T high-sensitivity series (baseline, 2hr, 4hr, 6hr) (10/22/2024 5:36 AM REVIEW MANAGER) Trop T hs 9 <=22 ng/L Comment: Interpretive Data For further hscTnT resources including the diagnostic algorithm and an aid in interpretation, copy and paste this link: https://nrl.testcatalog.org/show/hsTrop Current Interpretive Data last revised 2020. Blood 10/22/2024 5:36 AM REVIEW MANAGER 10/22/2024 5:38 AM REVIEW MANAGER us Amy Long MD LAB BLOOD ORDERABLES Final Resul t [facility] ([place] Department [place] [address] * eGFR (10/22/2024 5:36 AM REVIEW MANAGER) eGFR >90 >=60 mL/min/1. 73 m2 [...] last reviewed 2021. Blood 10/22/2024 5:36 AM REVIEW MANAGER 10/22/2024 5:38 AM REVIEW MANAGER us Amy Long MD LAB BLOOD ORDERABLES Final Resul t [facility] ([place] Department [place] [address] * (ABNORMAL) Differential, auto (10/22/2024 5:36 AM REVIEW MANAGER) Neutrophil abs 4.0 1.5 - 6.5 K/cumm Imm gran abs 0.1 0.0 - 0.1 K/cumm [facility] ([place]) Lymphocyte abs 2.5 0.8 - 3.3 K/cumm [facility] ([place]) Monocyte abs 0.6 0.2 - 0.8 K/cumm [facility] ([place]) Eosinophil abs 0.6(H) 0.0 - 0.5 K/cumm [facility] ([place]) Basophil abs 0.1 0.0 - 0.1 K/cumm [facility] ([place]) Neutrophil pct 51.0 % [facility] ([place]) Comment: Interpretive Data Percent cell count reference [...] revised on 2018. Monocyte pct 7.6 % [facility] ([place]) Comment: Interpretive Data Percent cell count reference [...] revised on 2018. Blood 10/22/2024 5:36 AM REVIEW MANAGER 10/22/2024 5:38 AM REVIEW MANAGER us Amy Long MD LAB BLOOD ORDERABLES Final Resul t [facility] ([place]) 1 [facility] Department of Laboratories [place], [place] [id number] * (ABNORMAL) CBC with auto differential (10/22/2024 5:36 AM REVIEW MANAGER) WBC 7.9 3.8 - 9.9 K/cumm [...] [facility] ([place]) Blood 10/22/2024 5:36 AM REVIEW MANAGER 10/22/2024 5:38 AM REVIEW MANAGER us Amy Long MD LAB BLOOD ORDERABLES Final Resul t [facility] ([place] Department [place] [address] * Basic metabolic panel (10/22/2024 5:36 AM REVIEW MANAGER) Sodium 137 135 - 145 mmol/L [...] ([place]) Glucose 182 70 - 199 mg/dL [facility] ([place] Comment: Interpretive Data Fasting glucose [...] 2022. Calcium 9.5 8.5 - 10.3 mg/dL [facility] Blood 10/22/2024 5:36 AM REVIEW MANAGER 10/22/2024 5:38 AM REVIEW MANAGER us Amy Long MD LAB BLOOD ORDERABLES Final Resul t [facility] ([place] [place] [address] * ECG 12 lead (10/22/2024 4:09 AM REVIEW MANAGER) 10/22/2024 4:09 AM REVIEW MANAGER Narrative [facility] - 10/22/2024 8:39 AM REVIEW MANAGER Vent Rate: 106 bpm RR Interval: 563 msec [place] Interval: 172 msec QRS Duration: 117 msec QT Interval: 356 msec QTC Interval: 418 msec P-R-T [place]: 55 - 17 - 36 degrees IMPRESSION: SINUS TACHYCARDIA POSSIBLE LEFT ATRIAL ENLARGEMENT [-0.1mV P WAVE IN V1/V2] LVH Somewhat peaked T-waves may be due to electrolyte abnormality Compared to prior EKG, heart rate is now slightly faster and axis has shifted rightward Electronically Signed By: Dr Jamel Moise us Amy Long MD ECG ORDERABLES Final Result Performing Organization Address [facility] Co de Phone Number [facility] * eGFR (10/21/2024 11:38 AM REVIEW MANAGER) eGFR >90 >=60 mL/min/1. 73 m2 [...] reviewed 2021. Blood 10/21/2024 11:3 8 AM REVIEW MANAGER 10/21/2024 11:54 AM REVIEW MANAGER us Channing Morris MD LAB BLOOD ORDERABLES Final R esult Performing Organization Address City/[facility]/ZIP Co de Phone Number [facility] ([place] Department [place] [address] * (ABNORMAL) Differential, auto (10/21/2024 11:38 AM REVIEW MANAGER) Neutrophil abs 3.7 1.5 - 6.5 [...] Neutrophil pct 48.0 % [facility] ([place]) Comment: Interpretive Data Percent cell count reference [...] revised on 2018. Monocyte pct 9.2 % [facility] ([place]) Comment: Interpretive Data [...] revised on 2018. Basophil pct 1.4 % [facility] ([place]) Comment: Interpretive Data Percent cell count reference ranges are not reported, since discordance with absolute values may lead to misinterpretation of CBC data. Current Interpretive Data was last revised on 2018. Blood 10/21/2024 11:3 8 AM REVIEW MANAGER 10/21/2024 11:54 AM REVIEW MANAGER Channing Morris MD LAB BLOOD ORDERABLES Final R esult [facility] ([place]) [facility] Department [place] [address] * (ABNORMAL) CBC with auto differential (10/21/2024 11:38 AM REVIEW MANAGER) WBC 7.7 3.8 - 9.9 K/cumm Hgb 16.4 13.0 - 17.5 g/dL [facility] ([place]) Hct 53.1(H) 38.9 - 50.3 % [...] [facility] ([place]) Blood 10/21/2024 11:3 8 AM REVIEW MANAGER 10/21/2024 11:54 AM REVIEW MANAGER Channing Morris MD LAB BLOOD ORDERABLES Final R esult Performing Organization Address City/[facility]/ZIP Co de Phone Number [facility] ([place] Department [place] [address] * (ABNORMAL) Comprehensive metabolic panel (10/21/2024 11:38 AM REVIEW MANAGER) Sodium 134(L) 135 - 145 mmol/L [...] ([place]) Glucose 176 70 - 199 mg/dL [facility] ([place]) [...] S pecimen Blood 10/21/2024 11:3 8 AM REVIEW MANAGER 10/21/2024 11:54 AM REVIEW MANAGER Channing Morris MD LAB BLOOD ORDERABLES Final R esult [facility] ([place] Department [place] [address] from Last 3 Months Insurance Member Subscriber Plan / Payer (Ef fective 2022-Present) Name:Grabeil Jeter Relation to Subscriber:Self Name:Grabiel Jeter Payer ID:[id number] (NAIC) Group ID:Not on file Type:MEDICAID RISK OTHER Address: ATTN: CLAIMS DEPT [address] [facility] [place] [address] Advance Directives For more information, please contact: [phone] * Full Code (Latest Code Status on File) Date Activated Date Inactivated Comments 12/15/2021 11:54 AM 12/16/2021 7:16 PM Care Teams Bus Person Dishwasher Relationship Specialty Start Date End Date Milo Thayer MD PCP - General Family Practice 6/21/23
--- OUTSIDE RECORDS SUMMARY | 2024-12-18 12:49 | XMS_ITS | Clinical Summary ---
Author Organization [facility] Address [address] [place] [address] Phone Care Team Providers Care Surgery Assistant Name Role Phone Milo Thayer MD Primary Care Provider [phone] Allergies No known active allergies Medications HYDROcodone-acet aminophen (NORCO) 5-325 MG Tablet Take 1 Tab by mouth every 6 hours as needed for Pain. 20 Tab 0 11/01/2015 Active Encounters Date Type Department Care Team Description 11/05/2024 4:24 AM DELIVERY SUPERVISOR - 11/05/2024 9:13 AM DELIVERY SUPERVISOR [facility] [address] [place] [address] Giovani Bhat MD Kuzelj, Denis, MD Right sided abdominal pain Discharge Disposition: Discharged to home or Selfcare 11/05/2024 Travel from Last 3 Months Social History Tobacco Use Types Packs/Day Years Used Date Smoking Tobacco: Every Day Cigarettes Tobacco Cessation:Ready to Q uit: Not Asked; Counseling Given: Not Answered Alcohol Use Standard Drinks/Week Comments No 0 (1 standard drink = 0.6 oz pur e alcohol) Sex and Gender Information Value Date Recorded Sex Assigned at Not on file Legal Sex Male 10:29 PM CDT Gender Identity Not on file Sexual Orientation Not on file Last Filed Vital Signs Vital Sign Reading Time Taken Comments Blood Pressure 147/91 11/05/2024 9:00 AM DELIVERY SUPERVISOR Pulse 98 11/05/2024 9:00 AM DELIVERY SUPERVISOR Temperature 37 C (98.6 F) 11/05/2024 9:00 AM DELIVERY SUPERVISOR Respiratory Rate 16 11/05/2024 9:00 AM DELIVERY SUPERVISOR Oxygen Saturation 97% 11/05/2024 9:00 AM DELIVERY SUPERVISOR Inhaled Oxygen Concentration - - Weight 99.8 kg (220 lb) 11/05/2024 4:30 AM DELIVERY SUPERVISOR Height 180.3 cm (5' 11 ) 11/05/2024 4:30 AM DELIVERY SUPERVISOR Body Mass Index 30.68 11/05/2024 4:30 AM DELIVERY SUPERVISOR Plan of Treatment Health Maintenance Due Date Last Done Comments Hepatitis C Virus (HCV) Screening 1979 TdaP Immunization 1979 Hepatitis B Immunization (1 of 3 - 19+ 3-dose series) 1998 Pneumococcal Immunization Co mbined (1 of 2 - PCV) 1998 Influenza Immunization (#1) 2024 SARS-COV-2 Immunization ( - season) 2024 Colonoscopy 2024 Colorectal Cancer Screening 2024 Respiratory Syncytial Virus (RSV) Immunization (Adult) (1 - 1-dose 75+ series) 2054 Meningococcal Immunization (ACWY) Aged Out No longer eligible based on patient's age to complete this topic Rotavirus Immunization Aged Out No lo nger eligible based on patient's age to complete this topic Procedures Procedure Name Priority Date/Time Associated Diagnosis Comments US ABDOMEN LIMITED, LEVEL 1 - SINGLE ORGAN Stat with Interpretation 11/05/2024 8:[address] ABDOMEN PELVIS W/ CONTRAST Stat with Interpretation 11/05/2024 7:22 AM DELIVERY SUPERVISOR URINALYSIS REFLEX IF INDICATED BY ABNORMAL RESULTS STAT 11/05/2024 6:10 AM DELIVERY SUPERVISOR GOLD TOP TUBE STAT 11/05/2024 5:25 AM DELIVERY SUPERVISOR BLUE TOP TUBE STAT 11/05/2024 5:25 AM DELIVERY SUPERVISOR CBC WITH AUTO DIFFERENTIAL STAT 11/05/2024 5:25 AM DELIVERY SUPERVISOR EXTRA TUBES STAT 11/05/2024 5:25 AM DELIVERY SUPERVISOR LIPASE STAT 11/05/2024 5:25 AM DELIVERY SUPERVISOR CMP (COMPREHENSIVE METABOLIC PANEL) STAT 11/05/2024 5:25 AM DELIVERY SUPERVISOR COMPLETE BLOOD COUNT (CBC) WITH DIFF STAT 11/05/2024 5:25 AM DELIVERY SUPERVISOR from Last 3 Months Results * US ABDOMEN LIMITED, LEVEL 1 - SINGLE ORGAN OR SOFT TISSUE (11/05/2024 8:47 AM DELIVERY SUPERVISOR) Anatomical Region Laterality Modality Abdomen N/A Ultrasound 11/05/2024 8:51 AM DELIVERY SUPERVISOR Impressions 11/05/2024 8:54 AM DELIVERY SUPERVISOR IMPRESSION: Normal gallbladder sonogram. Narrative 11/05/2024 8:54 AM DELIVERY SUPERVISOR EXAM DESCRIPTION: US ABDOMEN LIMITED, LEVEL 1 - SINGLE ORGAN OR SOFT TISSUE REASON FOR STUDY: Right upper quadrant pain, gallbladder TECHNIQUE: Ultrasound of the gallbladder was performed with grayscale imaging. COMPARISON: 11/05/2024 CT FINDINGS: GALLBLADDER: The gallbladder appears unremarkable. No cholelithiasis. No gallbladder wall thickening or pericholecystic fluid. No positive sonographic Clifton sign reported. BILIARY SYSTEM: There is no evidence of intrahepatic or extrahepatic biliary ductal dilatation. The common bile duct measures 0.32 cm in diameter. LIVER: The visualized portion of the liver appears unremarkable. OTHER: No other significant findings. THIS IS AN ELECTRONICALLY VERIFIED FINAL REPORT 11/05/2024 8:51 AM - Electronically signed by Jamel Tirado M.D. RB: RAFAELA Report ID: [id number] Reading Location: [id number] Procedure Note Jamel Tirado MD - 11/05/2024 EXAM DESCRIPTION: US ABDOMEN LIMITED, LEVEL 1 - SINGLE ORGAN OR SOFT TISSUE REASON FOR STUDY: Right upper quadrant pain, gallbladder TECHNIQUE: Ultrasound of the gallbladder was performed with grayscale imaging. COMPARISON: 11/05/2024 CT FINDINGS: GALLBLADDER: The gallbladder appears unremarkable. No cholelithiasis. No gallbladder wall thickening or pericholecystic fluid. No positive sonographic Clifton sign reported. BILIARY SYSTEM: There is no evidence of intrahepatic or extrahepatic biliary ductal dilatation. The common bile duct measures 0.32 cm in diameter. LIVER: The visualized portion of the liver appears unremarkable. OTHER: No other significant findings. THIS IS AN ELECTRONICALLY VERIFIED FINAL REPORT 11/05/2024 8:51 AM - Electronically signed by Jamel Tirado M.D. RB: [email or web address] Report ID: [id number] Reading Location: [id number] IMPRESSION: Normal gallbladder sonogram. us Akshat Hale MD IMG US ORDERABLES Final Result * CT ABDOMEN PELVIS W/ CONTRAST (11/05/2024 7:22 AM DELIVERY SUPERVISOR) Anatomical Region Laterality Modality Abdomen N/A Computed Tomogra phy 11/05/2024 7:34 AM DELIVERY SUPERVISOR Impressions 11/05/2024 7:36 AM DELIVERY SUPERVISOR IMPRESSION: No acute finding. 1.6 cm left adrenal nodule is nonspecific though presumed benign. Compare with old studies if available. If unavailable consider 1 year follow-up adrenal protocol CT or MR per guidelines. Narrative 11/05/2024 7:36 AM DELIVERY SUPERVISOR EXAM DESCRIPTION: CT ABDOMEN PELVIS W/ CONTRAST REASON FOR STUDY: generalized abdominal pain that radiated into his back x 4 days. Reports pain started after his daughter jumped onto his stomach. TECHNIQUE: CT scan of the abdomen and pelvis performed with intravenous and without oral contrast using helical scanning technique with dynamic intravenous contrast injection. Reconstructed coronal and sagittal MPR images reviewed. All images stored on PACS. Automated exposure control was used as a dose optimization technique for this examination. CONTRAST TYPE/DOSE: 100mL of IOPAMIDOL 76 % IV SOLN injected via Intravenous COMPARISON: None available FINDINGS: LOWER CHEST: Band like density left base suggesting atelectasis or scarring. Heart size is enlarged and partially visualized. LIVER: Normal size. No identified cystic or solid masses. GALLBLADDER: Normally distended BILE DUCTS: No intrahepatic or extrahepatic ductal dilatation. SPLEEN: Normal size. No focal lesions. PANCREAS: No identified cystic or solid masses. No significant calcifications. No adjacent inflammation or peripancreatic fluid collections. Pancreatic duct not dilated. ADRENALS: Right adrenal appears unremarkable. Left adrenal demonstrates 1.6 cm soft tissue density nodule which is nonspecific though presumed benign. Compare with old studies if available. If unavailable consider 1 year follow-up adrenal protocol CT or MR per guidelines. KIDNEYS/URINARY TRACT: No identified significant cystic or solid masses. No visualized stones. No hydronephrosis or hydroureter. Symmetric enhancement. Urinary bladder is unremarkable. GI: No dilated bowel loops. No obvious wall thickening. Normal appendix. No significant diverticular disease. PERITONEUM: No ascites or free air. RETROPERITONEUM: No mass or adenopathy. REPRODUCTIVE: No significant abnormality. VASCULATURE: No abdominal aortic aneurysm. MUSCULOSKELETAL: No significant abnormality. OTHER: No other abnormality. THIS IS AN ELECTRONICALLY VERIFIED FINAL REPORT 11/05/2024 7:34 AM - Electronically signed by Jamel Tirado M.D. RB: RAFAELA Report ID: [id number] Reading Location: [place] [id number] Procedure Note Jamel Tirado MD - 11/05/2024 EXAM DESCRIPTION: CT ABDOMEN PELVIS W/ CONTRAST REASON FOR STUDY: generalized abdominal pain that radiated into his back x 4 days. Reports pain started after his daughter jumped onto his stomach. TECHNIQUE: CT scan of the abdomen and pelvis performed with intravenous and without oral contrast using helical scanning technique with dynamic intravenous contrast injection. Reconstructed coronal and sagittal MPR images reviewed. All images stored on PACS. Automated exposure control was used as a dose optimization technique for this examination. CONTRAST TYPE/DOSE: 100mL of IOPAMIDOL 76 % IV SOLN injected via Intravenous COMPARISON: None available FINDINGS: LOWER CHEST: Band like density left base suggesting atelectasis or scarring. Heart size is enlarged and partially visualized. LIVER: Normal size. No identified cystic or solid masses. GALLBLADDER: Normally distended BILE DUCTS: No intrahepatic or extrahepatic ductal dilatation. SPLEEN: Normal size. No focal lesions. PANCREAS: No identified cystic or solid masses. No significant calcifications. No adjacent inflammation or peripancreatic fluid collections. Pancreatic duct not dilated. ADRENALS: Right adrenal appears unremarkable. Left adrenal demonstrates 1.6 cm soft tissue density nodule which is nonspecific though presumed benign. Compare with old studies if available. If unavailable consider 1 year follow-up adrenal protocol CT or MR per guidelines. KIDNEYS/URINARY TRACT: No identified significant cystic or solid masses. No visualized stones. No hydronephrosis or hydroureter. Symmetric enhancement. Urinary bladder is unremarkable. GI: No dilated bowel loops. No obvious wall thickening. Normal appendix. No significant diverticular disease. PERITONEUM: No ascites or free air. RETROPERITONEUM: No mass or adenopathy. REPRODUCTIVE: No significant abnormality. VASCULATURE: No abdominal aortic aneurysm. MUSCULOSKELETAL: No significant abnormality. OTHER: No other abnormality. THIS IS AN ELECTRONICALLY VERIFIED FINAL REPORT 11/05/2024 7:34 AM - Electronically signed by Jamel Tirado M.D. RB: RB Report ID: [id number] Reading Location: [place] [address] IMPRESSION: No acute finding. 1.6 cm left adrenal nodule is nonspecific though presumed benign. Compare with old studies if available. If unavailable consider 1 year follow-up adrenal protocol CT or MR per guidelines. us Giovani Bhat MD IM CT ORDERABLES Final R esult * (ABNORMAL) URINALYSIS REFLEX IF INDICATED BY ABNORMAL RESULTS (11/05/2024 6:10 AM DELIVERY SUPERVISOR) SPECIFIC GRAVITY 1.020 1.003 - 1.030 11/05/2024 6:37 AM DELIVERY SUPERVISOR [facility] URINE PH 5.0 5.0 - 9.0 11/05/2024 6:37 AM DELIVERY SUPERVISOR [facility] WBC ESTERASE Negative Negative 11/05/2024 6:37 AM DELIVERY SUPERVISOR [facility] NITRITE Negative Negative 11/05/2024 6:37 AM [facility] PROTEIN, RANDOM URINE 30 mg/dL(A) Negative 11/05/2024 6:37 AM DELIVERY SUPERVISOR [facility] URINE GLUCOSE, QUAL 1000 mg/dL(A) Negative 11/05/2024 6:37 AM [facility] URINE KETONES Negative Negative 11/05/2024 6:37 AM DELIVERY SUPERVISOR [facility] UROBILINOGEN Normal Normal mg/dL 11/05/2024 6:37 AM [facility] URINE BLOOD 10 /uL(A) Negative david/ul 11/05/2024 6:37 AM DELIVERY SUPERVISOR [facility] URINALYSIS COLOR Yellow 11/05/2024 6:37 AM DELIVERY SUPERVISOR [facility] URINALYSIS CLARITY Clear 11/05/2024 6:37 AM DELIVERY SUPERVISOR [facility] WBC (Urine) 0-5 Negative, 0-5 /hpf 11/05/2024 6:37 AM DELIVERY SUPERVISOR [facility] URINE RBC'S 3-5(A) Negative, 0-2 /hpf 11/05/2024 6:37 AM DELIVERY SUPERVISOR [facility] EPITHELIAL CELLS Occasional /lpf 11/05/2024 6:37 AM DELIVERY SUPERVISOR [facility] BACTERIA, URINE Few(A) Negative /hpf 11/05/2024 6:37 AM DELIVERY SUPERVISOR [facility] Urine URINE SPECIMEN COLLECTION, CLEAN CATCH / Unknown Non-Phlebotomy Collection / Unknown 11/05/2024 6:10 AM DELIVERY SUPERVISOR 11/05/2024 6:20 AM DELIVERY SUPERVISOR Giovani Bhat MD URINE ORDERABLES Final Re sult [facility] [address] [place] [address] * Gold Top Tube (11/05/2024 5:25 AM DELIVERY SUPERVISOR) Blood No Phlebotomy Charged / Unknown 11/05/2024 5:25 AM DELIVERY SUPERVISOR 11/05/2024 5:31 AM DELIVERY SUPERVISOR Giovani Bhat MD CHEMISTRY ORDERABLES Vannessa l Result [facility] [address] [place] [address] * Blue Top Tube (11/05/2024 5:25 AM DELIVERY SUPERVISOR) Blood No Phlebotomy Charged / Unknown 11/05/2024 5:25 AM DELIVERY SUPERVISOR 11/05/2024 5:31 AM DELIVERY SUPERVISOR Giovani Bhat MD HEMATOLOGY ORDERABLES Fin al Result [facility] [address] [place] [address] * (ABNORMAL) CBC with Auto Differential (11/05/2024 5:25 AM DELIVERY SUPERVISOR) WBC 8.28 4.00 - 12.00 10(3)/mcL 11/05/2024 5:50 AM DELIVERY SUPERVISOR [facility] RBC 7.02(H) 4.40 - 5.80 10(6)/mcL 11/05/2024 5:50 AM DELIVERY SUPERVISOR [facility] HEMOGLOBIN (HGB) 15.6 13.0 - 16.5 g/dL 11/05/2024 5:50 AM DELIVERY SUPERVISOR [facility] HEMATOCRIT (HCT) 49.4 38.0 - 50.0 % 11/05/2024 5:50 AM DELIVERY SUPERVISOR [facility] MCV 70.4(L) 82.0 - 96.0 fL 11/05/2024 5:50 AM DELIVERY SUPERVISOR [facility] MCH 22.2(L) 26.0 - 32.0 pg 11/05/2024 5:50 AM DELIVERY SUPERVISOR [facility] MCHC 31.6 31.0 - 36.0 g/dL 11/05/2024 5:50 AM DELIVERY SUPERVISOR [facility] PLATELET COUNT 328 140 - 440 10(3)/[facility] 11/05/2024 5:50 AM DELIVERY SUPERVISOR [facility] RDW 17.1(H) 11.8 - 15.5 % 11/05/2024 5:50 AM DELIVERY SUPERVISOR [facility] MPV 10.5 8.0 - 12.6 fL 11/05/2024 5:50 AM DELIVERY SUPERVISOR [facility] NEUTROPHILS 46.3 40.0 - 68.0 % 11/05/2024 5:50 AM DELIVERY SUPERVISOR [facility] LYMPHOCYTES 37.7 19.0 - 49.0 % 11/05/2024 5:50 AM DELIVERY SUPERVISOR [facility] MONOCYTES 7.5 3.0 - 13.0 % 11/05/2024 5:50 AM DELIVERY SUPERVISOR [facility] EOSINOPHILS 7.2 0.0 - 8.0 % 11/05/2024 5:50 AM DELIVERY SUPERVISOR [facility] BASOPHILS 1.3(H) 0.0 - 1.0 % 11/05/2024 5:50 AM [facility] ABSOLUTE NEUTROPHILS 3.83 1.40 - 5.30 10(3)/[facility] 11/05/2024 5:50 AM DELIVERY SUPERVISOR [facility] ABSOLUTE LYMPHOCYTES 3.12 0.90 - 3.30 10(3)/[facility] 11/05/2024 5:50 AM [facility] ABSOLUTE MONOCYTES 0.62 0.10 - 0.90 10(3)/[facility] 11/05/2024 5:50 AM [facility] ABSOLUTE EOSINOPHIL 0.60(H) 0.00 - 0.50 10(3)/[facility] 11/05/2024 5:50 AM [facility] ABSOLUTE BASOPHILS 0.11(H) 0.00 - 0.10 10(3)/[facility] 11/05/2024 5:50 AM [facility] NRBC PER 100 WBC 0 11/05/20 5:50 AM [facility] RESULTS ARE CONSISTENT WITH PERIPHERAL SMEAR REVIEW Yes 11/05/2024 5:50 AM [facility] Blood Venipuncture / Unknown 11/05/2024 5:25 AM DELIVERY SUPERVISOR 11/05/2024 5:31 AM DELIVERY SUPERVISOR Narrative [facility] - 11/05/2024 5:50 AM DELIVERY SUPERVISOR Microcytosis us Giovani Bhat MD HEMATOLOGY ORDERABLES Fin al Result [facility] [address] [place] [address] * Lipase (11/05/2024 5:25 AM DELIVERY SUPERVISOR) LIPASE 65 8 - 78 U/L 11/05/2024 5:55 AM [facility] Blood Venipuncture / Unknown 11/05/2024 5:25 AM DELIVERY SUPERVISOR 11/05/2024 5:31 AM DELIVERY SUPERVISOR us Giovani Bhat MD CHEMISTRY ORDERABLES Vannessa l Result [facility] [address] [place] [address] * (ABNORMAL) CMP (Comprehensive Metabolic Panel) (11/05/2024 5:25 AM DELIVERY SUPERVISOR) SODIUM 138 136 - 145 mmol/L 11/05/2024 5:55 AM [facility] POTASSIUM 3.5 3.5 - 5.1 mmol/L 11/05/2024 5:55 AM [facility] CHLORIDE 105 98 - 107 mmol/L 11/05/2024 5:55 AM [facility] CO2, VENOUS 23 22 - 30 mmol/L 11/05/2024 5:55 AM [facility] ANION GAP 13.5 <18.0 mmol/L 11/05/2024 5:55 AM [facility] GLUCOSE 313(H) 70 - 99 mg/dL 11/05/2024 5:55 AM [facility] BUN 7(L) 9 - 21 mg/dL 11/05/2024 5:55 AM [facility] CREATININE, BLOOD 1.27 0.70 - 1.30 mg/dL 11/05/2024 5:55 AM [facility] BUN/CREATININE RATIO 6(L) 12 - 20 ratio 11/05/2024 5:55 AM [facility] TOTAL PROTEIN 7.3 6.3 - 8.2 g/dL 11/05/2024 5:55 AM [facility] ALBUMIN 4.5 3.5 - 5.0 g/dL 11/05/2024 5:55 AM [facility] A/G RATIO 1.6 1.0 - 2.2 11/05/2024 5:55 AM DELIVERY SUPERVISOR [facility] CALCIUM 9.4 8.7 - 10.5 mg/dL 11/05/2024 5:55 AM DELIVERY SUPERVISOR [facility] T BILI 0.2 0.2 - 1.2 mg/dL 11/05/2024 5:55 AM DELIVERY SUPERVISOR [facility] SGOT (AST) 41(H) 5 - 34 U/L 11/05/2024 5:55 AM DELIVERY SUPERVISOR [facility] SGPT (ALT) 71(H) 0 - 55 U/L 11/05/2024 5:55 AM DELIVERY SUPERVISOR [facility] ALKALINE PHOSPHATASE 122 40 - 150 U/L 11/05/2024 5:55 AM DELIVERY SUPERVISOR [facility] GFR, ESTIMATED >60 >=60 11/05/2024 5:55 AM DELIVERY SUPERVISOR [facility] Comment: Creatinine Clearance is the preferred criteria for selecting drug dose adjustments in renally impaired patients. The GFR is provided as additional pertinent clinical information. GFR is reported in mL/min/1.73 sq m. Calculation based on the Chronic Kidney Disease Epidemiology Collaboration (CKD- EPI) equation refit without adjustment for race. GFR, EST. >60 >=60 024 5:55 AM DELIVERY SUPERVISOR [facility] GFR, EST. NONAFRICAN >60 >=60 11/05/2024 5:55 AM DELIVERY SUPERVISOR [facility] Blood Venipuncture / Unknown 11/05/2024 5:25 AM DELIVERY SUPERVISOR 11/05/2024 5:31 AM DELIVERY SUPERVISOR us Giovani Bhat MD CHEMISTRY ORDERABLES Vannessa l Result [facility] [address] [place] [address] from Last 3 Months Care Teams Surgery Assistant Relationship Specialty Start Date End Date Milo Thayer MD PCP - General Family Medicine 11/05/24
--- OUTSIDE RECORDS SUMMARY | 2024-12-18 12:49 | XMS_ITS | Clinical Summary ---
Author Organization [facility] Address [address] [place] [address] Care Team Providers Care History Tutor Name Role Phone Milo Thayer MD Primary Care Provider [phone] Source Comments [facility],non-owned Affiliates and Associated Physician Practices is amultiple site organization consisting of ambulatory clinics and hospital sitesin [place], [place], [place] and [place]. This disclosure is being madepursuant to the Care Everywhere program and may not contain all information available regarding this patient. Last updated 18.[facility] Allergies No known active allergies Medications * Be aware that medications may not be up to date on this document. Alwaysverify current medications with the patient. Medication Sig Dispensed Refills Start Date End Date Status albuterol HFA (Proventil; Ventolin; Proair) 108 (90 Base) MCG/ACT inhaler INHALE 2 PUFFS BY MOUTH EVERY 4 HOURS NEEDED FOR WHEEZING 01/21/2022 Active atorvastatin (Lipitor) 40 MG tablet Take 1 (one) tablet by mouth at bedtime 90 tablet 3 05/23/2023 Active Entresto 97-103 MG tablet Take 1 (one) tablet by mouth 2 times daily 180 tablet 3 05/24/2023 Active Aspirin Low Dose 81 MG tablet 07/02/2023 Active amoxicillin (Amoxil) 500 MG tablet TAKE 1 TABLET BY MOUTH EVERY 8 HOURS UNTIL GONE 07/17/2023 Active Jardiance 10 MG tablet Take 1 (one) tablet by mouth once daily 90 tablet 3 06/18/2024 Active metoprolol succinate XL 24hr (Toprol XL) 50 MG tablet Take 1 (one) tablet by mouth once daily 90 tablet 3 06/18/2024 Active spironolactone (Aldactone) 25 MG tablet Take 1 (one) tablet by mouth once daily 90 tablet 3 12/14/2024 Active spironolactone (Aldactone) 25 MG tablet Take 1 (one) tablet by mouth once daily 90 tablet 06/18/2024 12/14/2024 Discontinued (Reorder) Encounters Date Type Department Care Team Description 12/14/2024 Refill [facility] - Cardiology [address] [facility], [facility] [address] [place] [address] Savita Tam PA MEDICATION REFILL 11/09/2024 Travel 10/20/2024 Travel from Last 3 Months Social History Tobacco Use Types Packs/Day Years Used Date Smoking Tobacco: Every Day Cigarettes Smokeless Tobacco: Never Sex and Gender Information Value Date Recorded Sex Assigned at Not on file Gender Identity Not on file Sexual Orientation Not on file Last Filed Vital Signs Vital Sign Reading Time Taken Comments Blood Pressure 127/79 06/18/2024 1:10 PM CDT Pulse 95 06/18/2024 1:10 PM CDT Temperature - - Respiratory Rate - - Oxygen Saturation 97% 06/18/2024 1:10 PM CDT Inhaled Oxygen Concentration - - Weight 101.6 kg (224 lb) 06/18/2024 1:10 PM CDT Height 180.3 cm (5' 11 ) 06/18/2024 1:10 PM CDT Body Mass Index 31.24 06/18/2024 1:10 PM CDT Plan of Treatment Upcoming Encounters Date Type Department Care Team (Late st Contact Info) Description 12/30/2024 10:00 AM FLORIST'S DECORATOR Office Visit [facility] - Cardiology [address] [facility], [facility] [address] [place] [id number] Ashley Zavala APRN-TJ [address] [facility] [address] [place] [address] Health Maintenance Due Date Last Done Comments COLOGUARD (AGES 45-75) - COL ON CA SCREENING 1979 COLON MONITORING 1979 COLONOSCOPY - COLON CA SCREENING 1979 CT COLONOGRAPHY - COLON CA SCREENING 1979 Colorectal Cancer Screening 1979 FIT - COLON CA SCREENING 1979 FLEX SIG - COLON CA SCREENING 1979 HIV SCREENING 1994 HEPATITIS C SCREENING 07/27/1997 DTAP/TDAP/TD VACCINES (1 - Tdap) 1998 HEPATITIS B VACCINE (1 of 3 - 19+ 3-dose series) 1998 PNEUMOCOCCAL VACCINE (1 of 2 - PCV) 1998 SCREENING FOR DIABETES 09/17/2022 COVID-19 VACCINE (1 - 2023-2 5 season) 2024 INFLUENZA VACCINE (#1) 2024 DEPRESSION SCREENING 11/11/2024 ZOSTER VACCINE (1 of 2) 2029 HIB VACCINE Aged Out No longer eligi ble based on patient's age to complete this topic HPV VACCINE Aged Out No longer eligi ble based on patient's age to complete this topic MENINGOCOCCAL (Group B) VACCINE Aged Out No longer eligible based on patient's age to complete this topic MENINGOCOCCAL VACCINE Aged Out No victor hugo maria e eligible based on patient's age to complete this topic Care Teams History Tutor Relationship Specialty Start Date End Date Milo Thayer MD [address] [place] [id number] PCP - General 09/17/22
--- OUTSIDE RECORDS SUMMARY | 2024-12-18 12:49 | XMS_ITS | Referral Summary ---
Author Organization [facility] Address [address] [place] [address] Care Team Providers Care Computational Scientist Name Role Phone Milo Thayer MD Primary Care Provider [phone] Source Comments [facility],non-owned Affiliates and Associated Physician Practices is amultiple site organization consisting of ambulatory clinics and hospital sitesin [place], [place], [place] and [place]. This disclosure is being madepursuant to the Care Everywhere program and may not contain all information available regarding this patient. Last updated 18.[facility] Encounters Date Type Department Care Team Description 12/14/2024 Refill [facility] - Cardiology [address] [facility] [address] [place] [address] Savita Tam PA MEDICATION REFILL 11/09/2024 Travel 10/20/2024 Travel from Last 3 Months Allergies No known active allergies Medications * [...] daily 90 tablet 06/18/2024 12/14/2024 Discontinued (Reorder) Social History Tobacco Use Types Packs/Day Years [...] st Contact Info) Description 12/30/2024 10:00 AM PROJECTOR BOOTH OPERATOR Office Visit [facility] - Cardiology [address] [facility] [facility], [facility] [address] [place] [phone] Ashley Zavala APRN-TJ [address] [facility] [address] [place] [address] Care Teams Computational Scientist Relationship Specialty Start Date End Date Milo Thayer MD [address] [place] [address] PCP - General 09/17/22
--- OUTSIDE RECORDS SUMMARY | 2024-12-18 12:49 | XMS_ITS | Patient Health Summary ---
Author Organization [facility] Address [address] [place] [address] Care Team Providers Care Plumbing Warehouse Helper Name Role Phone Milo Thayer MD Primary Care Provider [phone] Note from [facility],non-owned Affiliates and Associated Physician Practices is amultiple site organization consisting of ambulatory clinics and hospital sitesin [place], [place], [place] and [place]. This disclosure is being madepursuant to the Care Everywhere program and may not contain all information available regarding this patient. Last updated 18.[facility] Allergies No known active allergies Medications * Be aware that medications may not be up to date on this document. Alwaysverify current medications with the patient. * albuterol HFA (Proventil; Ventolin; Proair) 108 (90 Base) MCG/ACT inhaler (Started 01/21/2022) INHALE 2 PUFFS BY MOUTH EVERY 4 HOURS NEEDED FOR WHEEZING * atorvastatin (Lipitor) 40 MG tablet(Started 05/23/2023) Take 1 (one) tablet by mouth at bedtime 3 refills by 05/22/2024 * Entresto 97-103 MG tablet(Started 05/24/2023) Take 1 (one) tablet by mouth 2 times daily 3 refills by 05/23/2024 * Aspirin Low Dose 81 MG tablet(Started 07/02/2023) * amoxicillin (Amoxil) 500 MG tablet(Started 07/17/2023) TAKE 1 TABLET BY MOUTH EVERY 8 HOURS UNTIL GONE * Jardiance 10 MG tablet(Started 06/18/2024) Take 1 (one) tablet by mouth once daily 3 refills by 06/18/2025 * metoprolol succinate XL 24hr (Toprol XL) 50 MG tablet(Started 06/18/2024) Take 1 (one) tablet by mouth once daily 3 refills by 06/18/2025 * spironolactone (Aldactone) 25 MG tablet(Started 12/14/2024) Take 1 (one) tablet by mouth once daily 3 refills by 12/14/2025 Ended Medications* spironolactone (Aldactone) 25 MG tablet(Started 06/18/2024) (Discontinued) Take 1 (one) tablet by mouth once daily Social History Tobacco Use Types Packs/Day Years [...] Mass Index 31.24 06/18/2024 1:10 PM CDT Procedures * ECHO COMPLETE(Performed 12/24/2022) Performed for Congestive heart failure, unspecified HF chronicity, unspecified heart failure type (HCC) * EKG 12-LEAD(Performed 09/17/2022) Results * ECHO COMPLETE (12/24/2022 4:29 PM INSOLE DEPARTMENT WORKER) Anatomical Region Laterality Modality Chest Echo 12/24/2022 3:20 PM INSOLE DEPARTMENT WORKER Narrative Procedure Note Chanel Gallardo MD - 12/25/2022 Marla Moore MD ECHOCARDIOGRAPHY RAD IANT * EKG 12-LEAD (09/17/2022) Andrew Hughes MD ECG ORDERABLES Care Teams Plumbing Warehouse Helper Relationship Specialty Start Date End Date Milo Thayer MD [address] [place] [address] PCP - General 09/17/22
[2024-12-18 13:10] LABS: Creatinine Urine 100.8 mg/dL; Total Protein Urine Random 24 mg/dL; Ur Ttl Prot Creatinine Ratio 0.24 mg/mg (0-0.20)
[2024-12-18 13:11] LABS: Albumin Level 4.3 g/dL (3.5-5.1); Anion Gap 10 mmol/L (4-12); Blood Urea Nitrogen 7 mg/dL (9-20); Calcium 8.8 mg/dL (8.4-10.2); Carbon Dioxide 24 mmol/L (22-30); Chloride 101 mmol/L (98-107); Estimated Glomerular Filt Rate > 60; Glucose 290 mg/dL (65-110); Phosphorus 2.5 mg/dL (2.5-4.5); Potassium 3.7 mmol/L (3.4-5.0); Sodium 135 mmol/L (137-145)
== END 2024-12-18 12:41 | disposition home or self-care (01) ==
LOC: ANHLAB 12:42
PROVIDERS: Visit Provider Internal Medicine Nephrology
DX: I12.9 Hypertensive chronic kidney disease with stage 1 through stage 4 chronic kidney disease, or unspecified chronic kidney disease (principal); N18.2 Chronic kidney disease, stage 2 (mild)
CPT/HCPCS: 36415; 80069; 82570; 84156

== ENCOUNTER 2025-06-18 11:38 | Outpatient (CLI) | payer OTHER, SELFPAY ==
--- OUTSIDE RECORDS SUMMARY | 2025-06-18 11:43 | XMS_ITS | Clinical Summary ---
Author Organization [facility] Address [address] [place] [address] Care Team Providers Care Nail Sticker Name Role Phone Milo Thayer MD Primary Care Provider [phone] Source Comments [facility],non-owned Affiliates and Associated Physician Practices is amultiple site organization consisting of ambulatory clinics and hospital sitesin [place], [place], [place] and [place]. This disclosure is being madepursuant to the Care Everywhere program and may not contain all information available regarding this patient. Last updated 18.[facility] Allergies No known active allergies Medications * Be aware that medications may not be up to date on this document. Alwaysverify current medications with the patient. albuterol HFA (Proventil; Ventolin; Proair) 108 (90 Base) MCG/ACT inhaler INHALE 2 PUFFS BY MOUTH EVERY 4 HOURS NEEDED FOR WHEEZING 01/21/2022 Active Aspirin Low Dose 81 MG tablet 07/02/2023 Active ibuprofen (Motrin) 800 MG tablet Take 1 (one) tablet by mouth every 12 hours FOR 10 DAYS 07/28/2024 Active Jardiance 10 MG tablet Take 1 (one) tablet by mouth once daily 90 tablet 3 02/01/2025 Active metoprolol succinate XL 24hr (Toprol XL) 50 MG tablet Take 1 (one) tablet by mouth once daily 90 tablet 3 02/01/2025 Active atorvastatin (Lipitor) 40 MG tablet Take 1 (one) tablet by mouth at bedtime 90 tablet 3 02/01/2025 Active sacubitril-vals josiah (Entresto) 97-103 MG tablet Take 1 (one) tablet by mouth 2 times daily 180 tablet 3 02/01/2025 Active spironolactone (Aldactone) 50 MG tablet Take 1 (one) tablet by mouth once daily 180 tablet 3 02/01/2025 Active hydrALAZINE (Apresoline) 50 MG tablet Take 2 (two) tablets by mouth 3 times daily 180 tablet 5 02/01/2025 Active amLODIPine (Norvasc) 5 MG tablet Take 1 (one) tablet by mouth once daily 90 tablet 3 02/26/2025 Active Active Problems Problem Noted Date Diagnosed Date HTN (hypertension), benign 02/01/2025 NICM (nonischemic cardiomyopathy) 02/01/2025 Heart failure with recovered ejection fraction ( HFrecEF) 02/01/2025 HLD (hyperlipidemia) 02/01/2025 Tobacco use disorder 02/01/2025 Encounters Date Type Department Care Team Description 06/07/2025 Telephone [facility] - Cardiology [address] [facility], [facility] [address] [place] [address] Ashley Zavala APRN-TJ Results 06/04/2025 Telephone [facility] - Sleep Services [address] [facility] [address] [place] [address] Chrissie Corbett APNP-CHRO Appointment 06/03/2025 Telephone [facility] - Cardiology [address] [facility], [place] [address] [place] [address] Ashley Zavala APRN-CHRO Follow-up 06/03/2025 Telephone [facility] - Sleep Services [address] [facility] [place] [address] [place] [phone] Chrissie Corbett APNP-CHRO Appointment 06/01/2025 Telephone [facility] - Sleep Services [address] [facility] [place] [address] [place] [phone] Chrissie Corbett APNP-CHRO Appointment 05/06/[address] [facility] - Cardiology [address] [facility], [place] [phone] Ashley Zavala APRN-CNP Results 05/04/2025 10:30 AM CDT Office Visit [facility] - Cardiology [address] [facility], [address] [phone] Joselyn Hunt APRN-CNP Springer, Kaitlin, APRN-CNP HTN (hypertension), benign (Primary Dx); NICM (nonischemic cardiomyopathy) ([facility]); Hyperlipidemia, unspecified hyperlipidemia type; Tobacco use disorder 05/04/2025 9:00 AM CDT Ancillary Procedure [facility] - Echoson[facility], [address] [phone] Joselyn Hunt APRN-CNP NICM (nonischemic cardiomyopathy) ([facility]); Heart failure with recovered ejection fraction (HFrecEF) ([facility]); HTN (hypertension), benign; Mixed hyperlipidemia 05/04/[address] [facility] - Cardiology [address] [place] [address], [address] [phone] Ashley Zavala APRN-CNP Results (/) 05/04/2025 Travel 03/29/2025 Travel from Last 3 Months Social History Tobacco Use Types Packs/Day Years Used Date Smoking Tobacco: Every Day Cigarettes Smokeless Tobacco: Never Tobacco Cessation:Ready to Q uit: Not Asked; Counseling Given: Not Answered Sex and Gender Information Value Date Recorded Sex Assigned at Not on file Legal Sex Male 4:15 PM CDT Gender Identity Not on file Sexual Orientation Not on file Last Filed Vital Signs Vital Sign Reading Time Taken Comments Blood Pressure 120/84 05/04/2025 10:18 AM CDT Pulse 100 05/04/2025 10:18 AM CDT Temperature - - Respiratory Rate 16 02/01/2025 10:17 AM CDT Oxygen Saturation 95% 05/04/2025 10:18 AM CDT Inhaled Oxygen Concentration - - Weight 98.4 kg (217 lb) 05/04/2025 10:18 AM CDT Height 180.3 cm (5' 11) 05/04/2025 10:18 AM CDT Body Mass Index 30.27 05/04/2025 10:18 AM CDT Plan of Treatment Upcoming Encounters Date Type Department Care Team (Late st Contact Info) Description 06/22/2025 9:30 AM CDT Office Visit [facility] - Family Medicine [address] [phone] Anh Carrington, VOLUNTEER SERVICES DIRECTOR-CHRO [address] [place], [place] [phone] 10/28/2025 1:30 PM HAND THERMAL CUTTER Office Visit [facility] - Cardiology [address] [facility], [place] [phone] [place] [address] Devyn Grier MD [address] [place], [place] [phone] Health Maintenance Due Date Last Done Comments COLOGUARD (AGES 45-75) - COLON CA SCREENING 1979 COLON MONITORING 1979 COLONOSCOPY [...] VACCINE (1 of 2 - PCV) 1998 HPV VACCINE (1 - 3-dose SCDM series) 2006 COVID-19 VACCINE (1 - season) 2024 DEPRESSION SCREENING 11/11/2024 INFLUENZA VACCINE (#1) 2025 SCREENING FOR DIABETES 11/05/2027 , 11/05/2024, 05/04/2023, Additional history exists ZOSTER VACCINE (1 of 2) 2029 HIB VACCINE Aged Out No longer eligi ble based on patient's age to complete this topic MENINGOCOCCAL (Group B) VACCINE SHARED DECISION-MAKING Aged Out No longer eligible based on patient's age to complete this topic MENINGOCOCCAL GROUPS A/C/Y/W VACCINE Aged Out No longer eligible based on patient's age to complete this topic Procedures Procedure Name Priority Date/Time Associated Diagnosis Comments ECHO COMPLETE Routine 05/04/2025 9:48 AM CDT NICM (nonischemic cardiomyopathy) (HCC) Heart failure with recovered ejection fraction (HFrecEF) (HCC) HTN (hypertension), benign Mixed hyperlipidemia from Last 3 Months Results * ECHO COMPLETE (05/04/2025 9:48 AM CDT) IVSd 2D 1.139 cm SSM CV FUJ I PACS LVIDd 4.421 cm SSM CV FUJ I PACS LVIDs 2.961 cm SSM CV FUJ I PACS LVOT diam 2.234 cm SSM CV FUJ I PACS LVPWd 1.209 cm SSM CV FUJ I PACS LV biplane EF 55.523 % SSM CV FUJI PACS LV A2C EF 58.525 % SSM CV FUJ I PACS LV A4C EF 55.764 % SSM CV FUJ I PACS LV EDV A2C 64.103 ml SSM CV FU JI PACS LV EDV A4C 74.407 ml SSM CV FU JI PACS LV ESV A2C 26.587 ml SSM CV FU JI PACS LV ESV A4C 32.915 ml SSM CV FU JI PACS LVOT pk grad 3.424 mmHg SSM CV FUJI PACS LVOT pk gabo 92.527 cm/s SSM CV F UJI PACS LVOT VTI 13.987 cm SSM CV FUJ I PACS RVIDd 3.231 cm SSM CV FUJ I PACS RVOT pk gabo 59.054 cm/s SSM CV F UJI PACS RVOT VTI 9.829 cm SSM CV FUJ I PACS LA vol BP 55.989 ml SSM CV FUJ I PACS RA area 13.204 cm SSM CV FUJI PACS AV area pk gabo 2.519 cm SSM CV FUJI PACS AV area cont VTI 2.598 cm SSM CV FUJI PACS AV pk grad 8.295 mmHg SSM CV FU JI PACS AV mn grad 4.549 mmHg SSM CV FU JI PACS AV pk gabo 144.002 cm/s SSM CV FUJ I PACS AV VTI 21.11 cm SSM CV FUJ I PACS MV A pk gabo 69.003 cm/s SSM CV F UJI PACS MV E pk gabo 67.258 cm/s SSM CV F UJI PACS MV E' lateral gabo 10.531 cm/s SS M CV FUJI PACS MV mn grad 1.347 mmHg SSM CV FU JI PACS MV VTI 12.395 cm SSM CV FUJ I PACS PV pk gabo 89.856 cm/s SSM CV FUJ I PACS TAPSE 1.91 cm SSM CV FUJ I PACS Ascending aorta 2.754 cm SSM CV FUJI PACS IVC Diam Expiration 1.59 cm SSM CV FUJI PACS Sinus of Valsalva 2.802 cm SS M CV FUJI PACS AV area index 1.172 cm /m SSM CV FUJI PACS LA vol index 0.025 l/m SSM CV FUJI PACS Dimensionless Index 0.663 unitless SSM CV FUJI PACS Myocardial strain charge 2 unitless SSM CV FUJI PACS Anatomical Region Laterality Modality Ultrasound 05/04/2025 9:49 AM CDT Narrative 05/04/2025 12:05 PM CDT Summary * The left ventricle is normal in size, with normal systolic function and an estimated ejection fraction of 56 % by biplane method of disks. Left ventricular wall motion is normal. * The left ventricular diastolic function is normal. * Right ventricle is normal in size with normal systolic function. * Unable to assess pulmonary pressures due to a lack of tricuspid and pulmonic regurgitation. Patient Info Name: Missael Jeter Age: 44 years : 1980 Gender: Male Ht: 71 in Wt: 212 lb BSA: 2.22 m2 HR: 99 bpm BP: 130 / 90 mmHg Exam Date: 05/04/2025 9:49 AM Patient Status: O Study Site: [facility] Primary Location: [facility] Info Exam Type: ECHO COMPLETE Indications I42.8 - NICM (nonischemic cardiomyopathy) ([facility]) E78.2 - Mixed hyperlipidemia I10 - HTN (hypertension), benign I50.32 - Heart failure with recovered ejection fraction (HFrecEF) ([facility]) Procedure(s) * A complete 2D, color Doppler, and spectral Doppler transthoracic echocardiogram was performed. Staff Referring Physician: Joselyn Hunt Ordering Provider: Joselyn Hunt Tare Worker: Terri Harvey Left Ventricle The left ventricle is normal in size. Left ventricular systolic function is normal with an estimated ejection fraction of 56 % by biplane method of disks. The left ventricular mass is normal. Left ventricular segmental wall motion is normal. The left ventricular diastolic function is normal. Right Ventricle The right ventricle is normal in size. Right ventricular systolic function is normal. Left Atrium The left atrium is normal in size with a left atrial volume index of 25 ml/m2 by BP MOD. Right Atrium The right atrium is normal in size. Atrial Septum Intact interatrial septum visualized by 2D and color Doppler imaging. Aortic Valve The aortic valve is trileaflet. There is no aortic valve stenosis. There is no aortic valve regurgitation. Pulmonic Valve The pulmonic valve is not well visualized. There is no pulmonic valve stenosis. There is mild pulmonic regurgitation. Mitral Valve The mitral valve is normal. There is no mitral valve stenosis. There is trace mitral valve regurgitation. Tricuspid Valve The tricuspid valve is normal. There is no tricuspid valve regurgitation. Unable to assess pulmonary pressures due to a lack of tricuspid and pulmonic regurgitation. Inferior Vena Cava The inferior vena cava is normal in size (< 2.1 cm). There is < 50% collapse of the IVC upon inspiration with an estimated right atrial pressure of 3 mmHg. Pericardium/Pleural There is no pericardial effusion. Aorta The aortic root at the sinus of Valsalva is normal in size. The ascending aorta is normal in size. Measurements Left Ventricular Outflow Tract Name Value Normal LVOT 2D LVOT Diameter 2.2 cm LVOT Area 3.9 cm2 LVOT Doppler LVOT Peak Velocity 0.9 m/s LVOT Peak Gradient 3 mmHg LVOT Mean Velocity 66.82 cm/s LVOT Mean Gradient 2 mmHg LVOT VTI 14.0 cm LVOT VTI/AV VTI Ratio 0.7 LVOT Stroke Volume 55 ml LVOT Stroke Volume Index 25 ml/m2 35-58 LVOT CO 5.5 l/min LVOT CI 2.5 l/min/m2 Pulmonic Valve Name Value Normal RVOT Doppler RVOT Peak Velocity 0.6 m/s RVOT Peak Gradient 1 mmHg RVOT Mean Gradient 1 mmHg PV Doppler PV Peak Velocity 0.9 m/s PV Peak Gradient 3 mmHg PV Mean Gradient 2 mmHg PV Accel Time 85.63 ms Mitral Valve Name Value Normal MV Doppler MV Peak Gradient 3 mmHg MV Mean Gradient 1 mmHg MV DI (VTI) 0.89 MV PHT 56 ms MV Area (PHT) 3.96 cm2 4.00-5.00 MV Area (Cont Eq VTI) 4.42 cm2 MV Diastolic Function MV E Peak Velocity 0.7 m/sec MV A Peak Velocity 0.7 m/sec MV E/A 1.0 MV Decel Time (PW) 145 ms MV A Wave Duration 105 ms MV Annular TDI MV Septal e' Velocity 13 cm/s >=8 MV E/e' (Septal) 5 <=8 MV Lateral e' Velocity 11 cm/s >=10 MV E/e' (Lateral) 6 <=8 MV e' Average 12 cm/s MV E/e' (Average) 6 Tricuspid Valve Name Value Normal Estimated PAP/RSVP RA Pressure 3 mmHg <=5 TV Annular TDI TV Lateral Raine s' Velocity 13 cm/s 10-19 Pulmonary Vessels Name Value Normal Pulmonary Veins Pulm Vein Peak Systolic Velocity 37.6 cm/s Pulm Vein Peak Diastolic Velocity 44.0 cm/s Pulm Vein S/D Velocity Ratio 1 Pulm Vein Ar Velocity 37.2 cm/s Pulm Vein Ar Dur - MV A Dur -23 ms Aorta Name Value Normal Ascending Aorta Sinus of Valsalva Diameter 2.8 cm 2.8-4.0 Sinus of Valsalva Index 1.3 cm/m2 1.3-2.1 Asc Ao Diameter 2.8 cm 2.2-3.8 Asc Ao Diameter Index 1.2 cm/m2 1.1-1.9 Venous Name Value Normal IVC/SVC IVC Diameter 1.6 cm <=2.1 Aortic Valve Name Value Normal AV Doppler AV Peak Velocity 1.44 m/s AV Peak Gradient 8 mmHg AV Mean Gradient 5 mmHg AV VTI 21 cm AV Area (Cont Eq VTI) 2.60 cm2 >=2.00 AV Area (Cont Eq Gabo) 2.52 cm2 AV DI (VTI) 0.66 AV DI (Gabo) 0.64 AV Regurgitation 2D LVOT Area 3.92 cm2 Ventricles Name Value Normal LV Dimensions 2D/MM IVS Diastolic Thickness (2D) 1.1 cm 0.6-1.0 LVID Diastole (2D) 4.4 cm 4.2-5.8 LVPW Diastolic Thickness (2D) 1.2 cm 0.6-1.0 LVID Systole (2D) 3.0 cm 2.5-4.0 LV Mass (2D Cubed) 187 g 88-224 LV Mass Index (2D Cubed) 84 g/m2 49-115 Relative Wall Thickness (2D) 0.55 <=0.42 LV Fractional Shortening/Ejection Fraction 2D/MM LV Fractional Shortening (2D) 33 % 25-43 LV EF (2D Teicholz) 62 % 52-72 LV Diastolic Volume (4C MOD) 74 ml LV EF (4C MOD) 56 % LV Diastolic Volume (2C MOD) 64 ml LV EF (2C MOD) 59 % LV Diastolic Volume (BP MOD) 70 ml 62-150 LV Diastolic Volume Index (BP MOD) 32 ml/m2 34-74 LV Systolic Volume (BP MOD) 31 ml 21-61 LV Systolic Volume Index (BP MOD) 14 ml/m2 11-31 LV EF (BP MOD) 56 % 52-72 LV Diastolic Length (4C) 8.4 cm LV Systolic Length (4C) 7.8 cm LV Stroke Volume (4C MOD) 41 ml RV Dimensions 2D/MM RVID Diastole (2D) 3.2 cm 2.5-3.5 TAPSE 1.9 cm >=1.7 Atria Name Value Normal LA Dimensions LA Volume (BP MOD) 56 ml LA Volume Index (BP MOD) 25 ml/m2 16-34 RA Dimensions RA Area (4C) 13 cm2 <=18 RA Area (4C) Index 6 cm2/m2 RA ESV (4C MOD) 29 ml 18-32 RA ESV Index (4C MOD) 13 ml/m2 16-34 Report Signatures Finalized by Mehrdad Villarreal DR on 05/04/2025 12:05 PM Procedure Note Mehrdad Villarreal MD - 05/04/2025 Summary * The left ventricle is normal in size, with normal systolic functionand an estimated ejection fraction of 56 % by biplane method of disks. Left ventricular wall motion is normal. * The left ventricular diastolic function is normal. * Right ventricle is normal in size with normal systolic function. * Unable to assess pulmonary pressures due to a lack of tricuspid and pulmonic regurgitation. Patient Info Name: Missael Jeter Age: 44 years : 1980 Gender: Male Ht: 71 in Wt: 212 lb BSA: 2.22 m2 HR: 99 bpm BP: 130 / 90 mmHg Exam Date: 05/04/2025 9:49 AM Patient Status: O Study Site: [facility] Primary Location: [facility] Info Exam Type: ECHO COMPLETE Indications I42.8 - NICM (nonischemic cardiomyopathy) ([facility]) E78.2 - Mixed hyperlipidemia I10 - HTN (hypertension), benign I50.32 - Heart failure with recovered ejection fraction (HFrecEF)([facility]) Procedure(s) * A complete 2D, color Doppler, and spectral Doppler transthoracic echocardiogram was performed. Staff Referring Physician: Joselyn Hunt Ordering Provider: Joselyn Hunt Tare Worker: Terri Harvey Left Ventricle The left ventricle is normal in size. Left ventricular systolic functionis normal with an estimated ejection fraction of 56 % by biplane method ofdisks. The left ventricular mass is normal. Left ventricular segmental wallmotion is normal. The left ventricular diastolic function is normal. Right Ventricle The right ventricle is normal in size. Right ventricular systolicfunction is normal. Left Atrium The left atrium is normal in size with a left atrial volume index of25 ml/m2 by BP MOD. Right Atrium The right atrium is normal in size. Atrial Septum Intact interatrial septum visualized by 2D and color Doppler imaging. Aortic Valve The aortic valve is trileaflet. There is no aortic valve stenosis. Thereis no aortic valve regurgitation. Pulmonic Valve The pulmonic valve is not well visualized. There is no pulmonic valve stenosis. There is mild pulmonic regurgitation. Mitral Valve The mitral valve is normal. There is no mitral valve stenosis. Thereis trace mitral valve regurgitation. Tricuspid Valve The tricuspid valve is normal. There is no tricuspid valveregurgitation. Unable to assess pulmonary pressures due to a lack of tricuspid andpulmonic regurgitation. Inferior Vena Cava The inferior vena cava is normal in size (< 2.1 cm). There is < 50%collapse of the IVC upon inspiration with an estimated right atrial pressure of 3mmHg. Pericardium/Pleural There is no pericardial effusion. Aorta The aortic root at the sinus of Valsalva is normal in size. Theascending aorta is normal in size. Measurements Left Ventricular Outflow Tract Name Value Normal LVOT 2D LVOT Diameter 2.2 cm LVOT Area 3.9 cm2 LVOT Doppler LVOT Peak Velocity 0.9 m/s LVOT Peak Gradient 3 mmHg LVOT Mean Velocity 66.82 cm/s LVOT Mean Gradient 2 mmHg LVOT VTI 14.0 cm LVOT VTI/AV VTI Ratio 0.7 LVOT Stroke Volume 55 ml LVOT Stroke Volume Index 25 ml/m2 35-58 LVOT CO 5.5 l/min LVOT CI 2.5 l/min/m2 Pulmonic Valve Name Value Normal RVOT Doppler RVOT Peak Velocity 0.6 m/s RVOT Peak Gradient 1 mmHg RVOT Mean Gradient 1 mmHg PV Doppler PV Peak Velocity 0.9 m/s PV Peak Gradient 3 mmHg PV Mean Gradient 2 mmHg PV Accel Time 85.63 ms Mitral Valve Name Value Normal MV Doppler MV Peak Gradient 3 mmHg MV Mean Gradient 1 mmHg MV DI (VTI) 0.89 MV PHT 56 ms MV Area (PHT) 3.96 cm2 4.00-5.00 MV Area (Cont Eq VTI) 4.42 cm2 MV Diastolic Function MV E Peak Velocity 0.7 m/sec MV A Peak Velocity 0.7 m/sec MV E/A 1.0 MV Decel Time (PW) 145 ms MV A Wave Duration 105 ms MV Annular TDI MV Septal e' Velocity 13 cm/s >=8 MV E/e' (Septal) 5 <=8 MV Lateral e' Velocity 11 cm/s >=10 MV E/e' (Lateral) 6 <=8 MV e' Average 12 cm/s MV E/e' (Average) 6 Tricuspid Valve Name Value Normal Estimated PAP/RSVP RA Pressure 3 mmHg <=5 TV Annular TDI TV Lateral Raine s' Velocity 13 cm/s 10-19 Pulmonary Vessels Name Value Normal Pulmonary Veins Pulm Vein Peak Systolic Velocity 37.6 cm/s Pulm Vein Peak Diastolic Velocity 44.0 cm/s Pulm Vein S/D Velocity Ratio 1 Pulm Vein Ar Velocity 37.2 cm/s Pulm Vein Ar Dur - MV A Dur -23 ms Aorta Name Value Normal Ascending Aorta Sinus of Valsalva Diameter 2.8 cm 2.8-4.0 Sinus of Valsalva Index 1.3 cm/m2 1.3-2.1 Asc Ao Diameter 2.8 cm 2.2-3.8 Asc Ao Diameter Index 1.2 cm/m2 1.1-1.9 Venous Name Value Normal IVC/SVC IVC Diameter 1.6 cm <=2.1 Aortic Valve Name Value Normal AV Doppler AV Peak Velocity 1.44 m/s AV Peak Gradient 8 mmHg AV Mean Gradient 5 mmHg AV VTI 21 cm AV Area (Cont Eq VTI) 2.60 cm2 >=2.00 AV Area (Cont Eq Gabo) 2.52 cm2 AV DI (VTI) 0.66 AV DI (Gabo) 0.64 AV Regurgitation 2D LVOT Area 3.92 cm2 Ventricles Name Value Normal LV Dimensions 2D/MM IVS Diastolic Thickness (2D) 1.1 cm 0.6-1.0 LVID Diastole (2D) 4.4 cm 4.2-5.8 LVPW Diastolic Thickness (2D) 1.2 cm 0.6-1.0 LVID Systole (2D) 3.0 cm 2.5-4.0 LV Mass (2D Cubed) 187 g 88-224 LV Mass Index (2D Cubed) 84 g/m2 49-115 Relative Wall Thickness (2D) 0.55 <=0.42 LV Fractional Shortening/Ejection Fraction 2D/MM LV Fractional Shortening (2D) 33 % 25-43 LV EF (2D Teicholz) 62 % 52-72 LV Diastolic Volume (4C MOD) 74 ml LV EF (4C MOD) 56 % LV Diastolic Volume (2C MOD) 64 ml LV EF (2C MOD) 59 % LV Diastolic Volume (BP MOD) 70 ml 62-150 LV Diastolic Volume Index (BP MOD) 32 ml/m2 34-74 LV Systolic Volume (BP MOD) 31 ml 21-61 LV Systolic Volume Index (BP MOD) 14 ml/m2 11-31 LV EF (BP MOD) 56 % 52-72 LV Diastolic Length (4C) 8.4 cm LV Systolic Length (4C) 7.8 cm LV Stroke Volume (4C MOD) 41 ml RV Dimensions 2D/MM RVID Diastole (2D) 3.2 cm 2.5-3.5 TAPSE 1.9 cm >=1.7 Atria Name Value Normal LA Dimensions LA Volume (BP MOD) 56 ml LA Volume Index (BP MOD) 25 ml/m2 16-34 RA Dimensions RA Area (4C) 13 cm2 <=18 RA Area (4C) Index 6 cm2/m2 RA ESV (4C MOD) 29 ml 18-32 RA ESV Index (4C MOD) 13 ml/m2 16-34 Report Signatures Finalized by Mehrdad Villarreal DR on 05/04/2025 12:05 PM us Joselyn Hunt VOLUNTEER SERVICES DIRECTOR-CHRO ECHO CUPID Final Resu lt from Last 3 Months Insurance [facility] Care Teams Nail Sticker Relationship Specialty Start Date End Date Milo Thayer MD [address] [facility] [place] [address] PCP - General Family Medicine 05/10/25
--- OUTSIDE RECORDS SUMMARY | 2025-06-18 11:43 | XMS_ITS | Clinical Summary ---
Author Organization [facility] Medical Office Building A Address [address] [place] [address] Care Team Providers Care Health Clinician Name Role Phone Milo Thayer MD Primary Care Provider [phone] Allergies No known active allergies Medications albuterol [...] 14 days 14 tablet 05/04/2023 Active sacubitriL-vals joisah (ENTRESTO) 49-51 mg tabletIndicatio ns:chronic heart failure [...] (congestive) heart failure 02/2022 Uncontrolled hypertension 12/15/2021 Surgical History Surgery Date Site/Laterality Comments NOSE SURGERY ANKLE FRACTURE SURGERY Left WRIST SURGERY Medical History Medical History Date Comments Hx Other Medical ORIF Left ankle on 09-25-14; Comments: [facility] 10/19/2014 - Hypertension CHF (congestive heart failure) (HCC) Coronary artery disease Family History Medical [...] on file Legal 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 Gender Identity Not on file Sexual Orientation Not on file Obstetrics History Last Filed Vital Signs Vital Sign Reading Time Taken Comments Blood Pressure 127/94 10/22/2024 8:30 AM FURNACE ROOM SUPERVISOR Pulse 90 10/22/2024 8:30 AM FURNACE ROOM SUPERVISOR Temperature 36.5 C (97.7 F) 10/22/2024 4:04 AM FURNACE ROOM SUPERVISOR Respiratory Rate 18 10/22/2024 8:30 AM FURNACE ROOM SUPERVISOR Oxygen Saturation 96% 10/22/2024 8:30 AM FURNACE ROOM SUPERVISOR Inhaled Oxygen Concentration - - Weight 103.9 kg (229 lb) 10/22/2024 4:04 AM FURNACE ROOM SUPERVISOR Height 180.3 cm (5' 11) 10/22/2024 4:04 AM FURNACE ROOM SUPERVISOR Body Mass Index 31.94 10/22/2024 4:04 AM FURNACE ROOM SUPERVISOR Plan of Treatment Health Maintenance Due Date Last Done Comments Colon Cancer Screening-Colonoscopy 1980 Depression Screening 1980 Hepatitis C Screening 1979 Prostate Cancer Screening-PSA 1979 DTaP/Tdap/Td Vaccine (1 - Tdap) 1990 Hepatitis B Screening 1997 Regular Well Visit/Exam 18-64 1997 Pneumococcal vaccine <65 (1 of 2 - PCV) 1998 HPV Vaccines (1 - 3-dose SCDM series) 2006 Influenza Vaccine (#1) 2025 Medical Devices Implanted Type Area Airfreight Loading Supervisor Device Identifier Shelf Expiration Date Model / Serial / Lot Screw Screw Right: Ankle Insurance [place] [address] [place] [address] Advance Directives For more information, please contact: [phone] * Full Code (Latest Code Status on File) Date Activated Date Inactivated Comments 12/15/2021 11:54 AM 12/16/2021 7:16 PM Care Teams Health Clinician Relationship Specialty Start Date End Date Milo Thayer MD PCP - General Family Practice 05/01/23
--- OUTSIDE RECORDS SUMMARY | 2025-06-18 11:43 | XMS_ITS | Clinical Summary ---
Author Organization [facility] Address [address] [place] [address] Phone Care Team Providers Care Front Maker Name Role Phone Milo Thayer MD Primary Care Provider [phone] Allergies No known active allergies Medications HYDROcodone-acet aminophen (NORCO) 5-325 MG Tablet Take 1 Tab by mouth every 6 hours as needed for Pain. 20 Tab 0 11/01/2015 Active Social History Tobacco Use Types Packs/Day Years [...] Comments Blood Pressure 147/91 11/05/2024 9:00 AM [employer] Pulse 98 11/05/2024 9:00 AM [employer] TE[employer] Temperature 37 C (98.6 F) 11/05/2024 9:00 AM [employer] LEAD TE[employer]ER Respiratory Rate 16 11/05/2024 9:00 AM [employer]GE LEAD TE[employer]ER Oxygen Saturation 97% 11/05/2024 9:00 AM [employer]CHO[employer]GE LEAD TE[employer]ER Inhaled Oxygen Concentration - - Weight 99.8 kg (220 lb) 11/05/2024 4:30 AM [employer]AD TE[employer]ER Height 180.3 cm (5' 11) 11/05/2024 4:30 AM [employer] LEAD TE[employer]ER Body Mass Index 30.68 11/05/2024 4:30 AM [employer] LEAD TE[employer]ER Plan of Treatment Health Maintenance Due Date Last Done Comments Hepatitis C Virus (HCV) Screening 1979 TdaP Immunization 1979 Hepatitis B Immunization (1 of 3 - 19+ 3-dose series) 1998 Pneumococcal Immunization Co mbined (1 of 2 - PCV) 1998 Human Papillomavirus (HPV) Immunization (1 - 3-dose SCDM series) 2006 SARS-COV-2 Immunization ( - ) 07/12/2024 Cologuard 2024 Colonoscopy 2024 Colorectal Cancer Screening 2024 Immunochemical Fecal Occult Blood 2024 Influenza Immunization (#1) 2025 Respiratory Syncytial Virus (RSV) Immunization (Adult) (1 - 1-dose 75+ series) 2054 Meningococcal Immunization (ACWY) Aged Out No longer eligible based on patient's age to complete this topic Rotavirus Immunization Aged Out No lo nger eligible based on patient's age to complete this topic Care Teams Front Maker Relationship Specialty Start Date End Date Milo Thayer MD PCP - General Family Medicine 11/05/24
--- OUTSIDE RECORDS SUMMARY | 2025-06-18 11:43 | XMS_ITS | Encounter Summary ---
Author Organization [facility] Address [address] [place] [address] Care Team Providers Care Sole Ruffer Name Role Phone Milo Thayer MD Primary Care Provider [phone] None, Physician Primary Care Provider [facility] Milo Thayer MD Primary Care Provider [phone] Reason for Visit * Reason Onset Date Comments MEDICATION REFILL 01/28/2024 Encounter Details Date Type Department Care Team (Late st Contact Info) Description 01/28/2024 Refill [facility] - Cardiology [address] [facility], [place] [address] [place] [address] Savita Tam, PA [address] [place], [place] [id number] MEDICATION REFILL Social History Tobacco Use Types [...] Description 06/22/2025 9:30 AM CDT Office Visit [facility] - Family Medicine [address] [facility], [facility] [address] [place] [address] Anh Carrington, LABORER [employer] [address] [place] [address] 10/28/2025 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
[2025-06-18 12:25] LABS: Total Protein Urine Random 16 mg/dL
[2025-06-18 12:38] LABS: Ur Ttl Prot Creatinine Ratio 0.42 mg/mg (0-0.20)
[2025-06-18 14:13] LABS: Albumin Level 4.7 g/dL (3.5-5.1); Anion Gap 14 mmol/L (4-12); Blood Urea Nitrogen 9 mg/dL (9-20); Calcium 9.4 mg/dL (8.4-10.2); Carbon Dioxide 20 mmol/L (22-30); Chloride 97 mmol/L (98-107); Estimated Glomerular Filt Rate > 60; Glucose 518 mg/dL (65-110); Potassium 3.9 mmol/L (3.4-5.0); Sodium 131 mmol/L (137-145)
== END 2025-06-18 11:39 | disposition home or self-care (01) ==
LOC: ANHLAB 11:41
PROVIDERS: Visit Provider Internal Medicine Nephrology
DX: I12.9 Hypertensive chronic kidney disease with stage 1 through stage 4 chronic kidney disease, or unspecified chronic kidney disease (principal); N18.2 Chronic kidney disease, stage 2 (mild)
CPT/HCPCS: 36415; 80069; 82570; 84156